=== PATIENT | male | born 1955 | race Caucasian/White ===

== ENCOUNTER → 2016-06-12 | Outpatient (CLI) | payer BC ==
--- NOTE | 2016-06-12 12:18 | CT ---
EXAMINATION TYPE: CT ChestAbdPelvis w con DATE OF EXAM: 06/12/2016 9:42 AM COMPARISON: CT CAP March 04, 2016 and older studies HISTORY: f/u Lung CA progress study. CT DLP: 447.5 mGycm. Automated Exposure Control for Dose Reduction was Utilized. CONTRAST: CT scan of the thorax, abdomen and pelvis is performed with oral and with IV Contrast, patient inject ed with 100 mL of Omnipaque 300. FINDINGS: LUNGS: There is persistent calcified pleural plaques posterior right midlung on axial image 36 and thomas perior to this. Near level of the major fissure there is persistent irregular scarlike opacity with m ore suspicious with stable nodularity measuring 9 x 6 mm on axial image 25, this is not significantly changed from March 2015 study. However just superior to this there is new suspicious 8 x 7 mm nod ule noted on axial image 24 and coronal image 53. There may be new additional 4 x 3 mm nodule inferio r and medial to this on axial image 27. Left lung remains clear. There is no pleural effusion or pneu mothorax seen bilaterally. The tracheobronchial tree is patent. MEDIASTINUM: There are persistent slightly prominent borderline enlarged right hilar lymph nodes. The re is no new greater than 1 cm thoracic lymph nodes clearly seen. No cardiomegaly or pericardial eff usion is seen. OTHER: There are scattered prominent but subcentimeter lymph nodes throughout the bilateral axillae r edemonstrated. LIVER/GB: No significant abnormality is appreciated. PANCREAS: No significant abnormality is seen. SPLEEN: No significant abnormality is seen. ADRENALS: No significant abnormality is seen. KIDNEYS: There is symmetric cortical medullary uptake and excretion from both kidneys without evidenc e of hydronephrosis bilaterally. There is however moderate to severe mid to distal hydroureter especi ally prominent near the bladder orifice. No obstructing mass or calculus is clearly seen. Possible re flux? This is noted unchanged from prior exam. BOWEL: No significant abnormality is seen. GENITAL ORGANS: Prostate gland remains enlarged in size bulging on bladder base, clinical correlation with BPH is advised. LYMPH NODES: No greater than 1cm abdominal or pelvic lymph nodes are appreciated. OSSEOUS STRUCTURES: Moderate to severe joint space loss and spurring of both hip joints is present. OTHER: No significant additional abnormality is seen. IMPRESSION: New suspicious 8 x 7 mm nodule right upper lung near level of scar is noted. Recurrent n eoplasm needs to BE considered. Consider PET/CT follow-up.
== END | disposition home or self-care (01) ==
LOC: RADCTMAIN 08:25
PROVIDERS: ATTEND Internal Medicine Hematology & Oncology
DX: C34.90 Malignant neoplasm of unspecified part of unspecified bronchus or lung (principal)
CPT/HCPCS: 71260; 74177; Q9967

== ENCOUNTER → 2016-10-22 | Outpatient (CLI) | payer BC ==
[2016-10-22 08:31] LABS: Blood Urea Nitrogen 16 mg/dL (9-20); Non-African American GFR(MDRD) >60 (>60 ml/min/1.73 sqM)
--- NOTE | 2016-10-22 12:39 | CT ---
EXAMINATION TYPE: CT ChestAbdPelvis w con DATE OF EXAM: 10/22/2016 COMPARISON: August 16, 2016 CT HISTORY: Follow up scan of lung cancer CT DLP: 535.5 mGycm Automated exposure control for dose reduction was used. CONTRAST: CT scan of the chest, abdomen and pelvis is performed with Oral Contrast and with IV Contrast, patien t injected with 100 mL of Omnipaque 300. FINDINGS: LUNGS: Previously measuring 1.7 x 1.2 cm, the right upper lobe interlobar fissure-based mass now keri ures 3.3 x 2.8 cm on axial image 23 - consistent with neoplastic progression. Calcified pleural plaqu es posteriorly in the right upper to mid lung are redemonstrated. The previously seen 6 x 5 mm nodule inferior and medial to the main lesion appears slightly increased in size, measuring 7 x 6 mm. Also unchanged is the focal scarring laterally in the right lung base. No new parenchymal nodule or mass i s clearly seen. MEDIASTINUM: There remains suspicious right hilar lymph nodes felt to be stable, for lymph node measu res 10 x 9 mm. No new greater than 1 cm lymph nodes are clearly seen. No cardiomegaly or pericardial effusion is seen. OTHER: Prominent multiple but subcentimeter bilateral axillary lymph nodes are stable. LIVER/GB: No significant abnormality is appreciated. PANCREAS: No significant abnormality is seen. SPLEEN: No significant abnormality is seen. ADRENALS: No significant abnormality is seen. KIDNEYS: There is simple appearing 2.0 cm cyst laterally upper pole level left kidney that is stable. There is symmetric cortical medullary uptake and excretion from both kidneys without evidence of hyd ronephrosis bilaterally. There is redemonstration of the moderate-severe mid-distal hydroureter more focal dilatation or possible diverticulum in the left pelvis. BOWEL: No significant abnormality is seen. GENITAL ORGANS: Prostate gland is again seen to be heterogeneous and enlarged in size bulging on blad abhijit base, suspect underlying BPH. LYMPH NODES: No greater than 1cm abdominal or pelvic lymph nodes are appreciated. OSSEOUS STRUCTURES: No focal lesions. Markedly advanced [id number] bilateral hip osteoarthritis maine nges redemonstrated. IMPRESSION: CONTINUED PROGRESSION IN SIZE IN RIGHT UPPER LOBE MASS, NODULE, CONSISTENT WITH NEOPLASTIC PROGRESSIO N.
== END | disposition home or self-care (01) ==
LOC: RADCTMAIN 08:00
PROVIDERS: ATTEND Internal Medicine Hematology & Oncology
DX: C34.11 Malignant neoplasm of upper lobe, right bronchus or lung (principal)
CPT/HCPCS: 82565; 84520; 71260; 74177; 36415; Q9967

== ENCOUNTER → 2016-11-06 | Day surgery (SDC) | payer BC ==
[~2016-11-06] MED LIST: MIDAZOLAM 2 MG/2 ML VIAL IVP ONE; SODIUM CHLORIDE 0.9% 500 ML IV ONE; fentaNYL (PF) 50 MCG/ML 2 ML AMP IV ONE
[2016-11-06 09:35] LABS: INR 1.1 (<1.1); Prothrombin Time 10.7 sec (9.0-12.0)
[2016-11-06] MEDS: MIDAZOLAM 2 MG/2 ML VIAL IVP ONE ×2 (10:02→10:11)
[2016-11-06] MEDS: LIDOCAINE 2% INJ 20 MG/ML SQ ONE ×2 (10:17→10:37)
--- NOTE | 2016-11-06 11:25 | XR ---
EXAMINATION TYPE: XR chest 1V portable DATE OF EXAM: 11/06/2016 HISTORY: attempted lung biopsy (RT). REFERENCE: Previous study dated 10/14/2014. FINDINGS: There has been interval development of a 3.6 cm right upper lobe pulmonary mass. The lungs are overinflated. Heart size is normal. I do not see evidence of pneumothorax. IMPRESSION: NO EVIDENCE OF PNEUMOTHORAX AT THIS TIME.
[2016-11-06 12:48] VITALS: RESP 16
--- NOTE | 2016-11-06 13:40 | XR ---
EXAMINATION TYPE: XR chest 1V portable DATE OF EXAM: 11/06/2016 HISTORY: post lung biopsy. REFERENCE: Previous study of earlier today.. FINDINGS: Right upper lobe pulmonary mass remains unchanged in appearance. I do not see evidence of p neumothorax. The lungs are overinflated. The heart is not enlarged. IMPRESSION: I DO NOT SEE A POST BIOPSY COMPLICATION.
--- NOTE | 2016-11-06 14:53 | CT ---
EXAMINATION TYPE: CT guided FNA DATE OF EXAM: 11/06/2016 HISTORY: Lung mass COMPARISON: CT chest 10/22/2016 Failed attempts to perform biopsy in fluoroscopy room resulted in an attempt in CT. Maximal barrier technique was utilized. The skin overlying a suitable path to the lesion was localiz ed using CT and the overlying skin was prepped and draped. Lidocaine used for local anesthesia. A s kin pinky made with a scalpel. Using CT guidance, access was gained to the lesion with a 22-gauge nee dle. 20-gauge guide. Aspirated specimen submitted to cytology. 3 passes were performed in all. Fol lowing the procedure no immediate complications. The patient is discharged in stable condition. He mostasis achieved. IMPRESSION: SUCCESSFUL CT GUIDED BIOPSY. PATHOLOGY PENDING. THIS PROCEDURE WAS PERFORMED BY THE UNDERSIGNED.
--- NOTE | 2016-11-06 15:48 | XR ---
EXAMINATION TYPE: XR chest 1V portable DATE OF EXAM: 11/06/2016 HISTORY: post lung biopsy. REFERENCE: Previous study of earlier today.. FINDINGS: Visualized right upper lobe mass is unchanged. I do not see evidence of pneumothorax. The l ungs are overinflated. The heart is not enlarged. There is blunting of the right CP angle. I could no t exclude a small effusion. IMPRESSION: I DO NOT SEE A POSTBIOPSY PNEUMOTHORAX.
[2016-11-06 16:52] VITALS: TEMP 98.2
[2016-11-06 17:02] VITALS: BP 110/65; PULSE 48
--- NOTE | 2016-11-07 14:13 | IR ---
Fluoroscopically guided needle placement, lung biopsy EXAMINATION TYPE: IR fluoro guided needle place DATE OF EXAM: 11/06/2016 COMPARISON: CT 10/22/2016 HISTORY: Right upper lobe lung mass. FINDINGS: Maximal barrier technique was utilized. The skin overlying a suitable path to the patient's mass was localized under fluoroscopy. The overlying skin was prepped and draped. Lidocaine used for local a nesthesia and a skin pinky made with a scalpel. 22-gauge needle was advanced into the lung mass. Asp irated specimen submitted to cytology. An additional passes were made using similar technique. Foll owing the procedure no immediate complication. The patient remained in stable condition and was disc harged to observation. Due to inadequate specimen, repeat biopsy will be performed under CT. 0.6 minutes fluoroscopy time. 548 intraoperative C-arm images document the procedure IMPRESSION: Status post fluoroscopic guided fine-needle aspiration of lung mass. Pathology is inadeq uate. Biopsy to be performed with CT on same date. This procedure performed by the undersigned.
== END ==
LOC: RADPROMAIN 08:33
PROVIDERS: ATTEND Internal Medicine Hematology & Oncology
DX: C34.91 Malignant neoplasm of unspecified part of right bronchus or lung (principal)
CPT/HCPCS: 32405; 88305; 88173; 85049; 85610; 88342; 88341; 71010; 77012; 10022; J2001; J2250; J3010

== ENCOUNTER → 2017-02-12 | Outpatient (CLI) | payer BC, MEDICARE ==
[2017-02-12 11:54] LABS: Blood Urea Nitrogen 19 mg/dL (9-20); Non-African American GFR(MDRD) >60 (>60 ml/min/1.73 sqM)
--- NOTE | 2017-02-12 13:07 | CT ---
EXAMINATION TYPE: CT ChestAbdPelvis w con DATE OF EXAM: 02/12/2017 COMPARISON: 10/22/2016 and 08/16/2016 HISTORY: 61-year-old male follow-up lung CA TECHNIQUE: Contiguous axial scanning of the chest, abdomen, and pelvis performed with IV Contrast, pa tient injected with 100 mL of Omnipaque 300. Delayed images through the kidneys were obtained. Carrera l/sagittal reconstructions performed. CT DLP: 466.4 mGycm Automated exposure control for dose reduction was used. FINDINGS: CHEST: The heart is normal size without pericardial effusion. Aorta is normal caliber with bovine configuration to the aortic arch. Numerous nonenlarged axillary lymph nodes are present in both sides measuring up to 8 mm, increased f rom 10/22/2016 where this lymph node measured 6 mm. This can be followed on a clinical basis. Tiny lat eral left breast nodule measuring 5 mm is unchanged, likely intramammary lymph node. No thoracic lymp hadenopathy by CT size criteria. Pleural based calcifications along the posterior right mid lung are unchanged. Strandy opacity along the superior right major fissure suggesting scar. The right upper lobe mass pre viously seen here measuring 3.2 cm shows interval decrease in size now with a poorly defined spiculat ed density measuring 1.9 cm. The previous 2 adjacent satellite nodules are no longer visualized. Foca l 8 mm density at the peripheral right base is unchanged, likely pleural-parenchymal scarring. ABDOMEN: No focal liver lesion. Mild prominence to the biliary system is unchanged. Gallbladder, adrenal glands, right kidney, spleen, and pancreas appear within normal limits. 2.0 cm c yst lateral upper pole left kidney. Left-sided megaureter unchanged. No dilated small bowel, free fluid, or free air. No mesenteric or retroperitoneal lymphadenopathy richard ntified. Moderate stool burden. Mild circumferential wall thickening in the lower descending colon likely seco ndary to nondistention. Pelvis: Bladder is urine distended. Prostate gland is enlarged at 5.8 cm wide. More pronounced dilatation inv olves the distal left ureter at 3.4 cm, unchanged. No abnormal fluid collection in the pelvis. Bones: End-stage degenerative change of the hips. Degenerative changes at the SI joints and in the mid to lo wer lumbar spine. No osseous destructive process seen. IMPRESSION: 1. INTERVAL TREATMENT RESPONSE. THE PREVIOUS 3.2 CM RIGHT UPPER LOBE MASS NOW SHOWS A 1.9 CM POORLY D EFINED SPICULATED DENSITY. ALSO, THE 2 ADJACENT SATELLITE NODULES HAVE RESOLVED. RECOMMEND FOLLOW-UP TO REASSESS EVOLVING TREATMENT CHANGES. 2. PROSTATOMEGALY (5.8 CM WIDE). PROMINENT DISTENTION OF THE URINARY BLADDER. CORRELATE TO ENSURE LYNETTE T THIS IS VOLUNTARY RETENTION RATHER THAN BLADDER OUTLET OBSTRUCTION AND BPH. UNCHANGED LEFT MEGAURET ER.
== END | disposition home or self-care (01) ==
LOC: RADCTMAIN 11:10
PROVIDERS: ATTEND Internal Medicine Hematology & Oncology
DX: C34.90 Malignant neoplasm of unspecified part of unspecified bronchus or lung (principal); N40.0 Benign prostatic hyperplasia without lower urinary tract symptoms
CPT/HCPCS: 82565; 84520; 71260; 74177; 36415; Q9967

== ENCOUNTER → 2017-05-19 | Outpatient (CLI) | payer MEDICARE ==
[2017-05-19 10:57] LABS: Blood Urea Nitrogen 22 mg/dL (9-20)
--- NOTE | 2017-05-19 11:46 | CT ---
EXAMINATION TYPE: CT ChestAbdPelvis w con DATE OF EXAM: 05/19/2017 COMPARISON: NONE HISTORY: Patient has no complaints at time of study. Follow up study for known lung CA. CT DLP: 518.1 mGycm Automated exposure control for dose reduction was used. CONTRAST: CT scan of the chest, abdomen and pelvis is performed with Oral Contrast and with IV Contrast, patien t injected with 100 mL of Omnipaque 300. FINDINGS: CHEST: The heart is normal size without pericardial effusion. Aorta is normal caliber with bovine con figuration to the aortic arch. Numerous nonenlarged axillary lymph nodes are present in both sides me asuring up to 8 mm, stable from previous exam. This can be followed on a clinical basis. Tiny lateral left breast nodule measuring 5 mm is unchanged, likely intramammary lymph node. No thoracic lymphadenopathy by CT size criteria. Pleural based calcifications along the posterior rig ht mid lung are unchanged. Strandy opacity along the superior right major fissure suggesting scar. The right upper lobe mass with a poorly defined spiculated density measuring 1.9 cm. Is stable. Focal 8 mm density at the peripheral right base is unchanged, likely pleural-parenchymal scarring. ABDOMEN: No focal liver lesion. Mild prominence to the biliary system is unchanged. Gallbladder, adrenal glands, right kidney, spleen, and pancreas appear within normal limits. Small ac cessory spleen noted. 2.0 cm cyst lateral upper pole left kidney. Left-sided megaureter unchanged. No dilated small bowel, free fluid, or free air. No mesenteric or retroperitoneal lymphadenopathy richard ntified. Moderate stool burden. Mild circumferential wall thickening in the lower descending colon li ramin secondary to nondistention. Pelvis: Bladder is urine distended. Prostate gland is enlarged at 5.8 cm wide. More pronounced dilata tion involves the distal left ureter at 3.4 cm, unchanged. No abnormal fluid collection in the pelvis . Bones: End-stage degenerative change of the hips. Degenerative changes at the SI joints and in the mi d to lower lumbar spine. No osseous destructive process seen. Severe arthropathy of the hips IMPRESSION: 1. INTERVAL TREATMENT RESPONSE. THE PREVIOUS 3.2 CM RIGHT UPPER LOBE MASS NOW SHOWS A 1.9 CM POORLY D EFINED SPICULATED DENSITY. ALSO, THE 2 ADJACENT SATELLITE NODULES HAVE RESOLVED. RECOMMEND FOLLOW-UP TO REASSESS EVOLVING TREATMENT CHANGES. 2. PROSTATOMEGALY (5.8 CM WIDE). UNCHANGED LEFT MEGAURETER.
== END | disposition home or self-care (01) ==
LOC: RADCTMAIN 10:25
PROVIDERS: ATTEND Internal Medicine Hematology & Oncology
DX: C34.90 Malignant neoplasm of unspecified part of unspecified bronchus or lung (principal); N40.0 Benign prostatic hyperplasia without lower urinary tract symptoms
CPT/HCPCS: 82565; 84520; 71260; 74177; 36415; Q9967

== ENCOUNTER → 2017-08-12 | Outpatient (CLI) | payer MEDICARE ==
[2017-08-12 12:00] LABS: Blood Urea Nitrogen 18 mg/dL (9-20)
--- NOTE | 2017-08-12 14:43 | CT ---
EXAMINATION TYPE: CT ChestAbdPelvis w con DATE OF EXAM: 08/12/2017 INDICATION: Follow up to lung CA COMPARISON: 05/19/2017 CT DLP: 507.4 mGycm CONTRAST: Performed with Oral Contrast and with IV Contrast, patient injected with 100 mL of Isovue 300. TECHNIQUE: Axial images at 5 mm thick sections. Reconstructed images in the coronal plane. Delayed images through the kidneys. FINDINGS: CT CHEST: Portion of the thyroid visualized is normal. No suspicious lung nodules or focal infiltrates are present. Pleural calcifications in the posterior mid right lung. On lung windows some residual spiculated densities in the periphery of the right mid lung. Series 4 image 25. This measures 1.0 x 0.7 cm on mediastinal windows which is minimally smaller than the comparison. Previous measurement similar images 1.2 x 0.6 cm. A 1.2 cm right hilar lymph no de is present. Additional mediastinal adenopathy would include a 1.1 cm subcarinal lymph node which a ppears to be new. The right hilar lymph node was present previously and similar in size. The ascending aorta diameter at the level of the main pulmonary artery is 3.0 cm. The main pulmonary artery diameter at the bifurcation is 2.[address] ABDOMEN: Liver: Normal Spleen: Normal Pancreas: Normal Adrenal glands: The adrenal glands are normal. Gallbladder: Normal Kidneys: No masses are evident. No hydronephrosis is present. No cysts are present. Delayed images were obtained through the kidneys, which remain unremarkable. Aorta: Vascular calcification is within the aorta. Inferior vena cava: Normal. CT PELVIS: Loops of bowel within the abdomen and pelvis are normal. There are loops of bowel which are incom pletely distended or lack oral contrast limiting their evaluation. Appendix: Normal as visualized. Urinary bladder: Appears to be a large left urinary bladder diverticulum extending into the posterior left hemipelvis. This was present previously and appears stable. Differential would include the prev iously described megaureter. Genitourinary structures: Prostate is prominent. Osseous structures: No suspicious lytic or sclerotic lesions. IMPRESSIONS: 1. Slightly diminished size of a right midlung mass. Mediastinal adenopathy may be increasing in prom inence including a new subcarinal lymph node. 2. 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
== END | disposition home or self-care (01) ==
LOC: RADCTMAIN 11:21
PROVIDERS: ATTEND Internal Medicine Hematology & Oncology
DX: C34.90 Malignant neoplasm of unspecified part of unspecified bronchus or lung (principal); R91.8 Other nonspecific abnormal finding of lung field; R59.0 Localized enlarged lymph nodes
CPT/HCPCS: 82565; 84520; 71260; 74177; 36415; Q9967

== ENCOUNTER → 2017-11-11 | Outpatient (CLI) | payer MEDICARE ==
--- NOTE | 2017-11-11 14:02 | CT ---
EXAMINATION TYPE: CT ChestAbdPelvis w con DATE OF EXAM: 11/11/2017 COMPARISON: 08/12/2017 HISTORY: Lung cancer CT DLP: 1225 mGycm Automated exposure control for dose reduction was used. CONTRAST: CT scan of the chest, abdomen and pelvis is performed with Oral Contrast and with IV Contrast, patien t injected with 100 ml mL of Isovue 300. FINDINGS: LUNGS: The lungs are grossly clear, there is no concerning parenchymal mass or nodule identified. T here is no pleural effusion or pneumothorax seen. The tracheobronchial tree is patent. Pleural calci fications again noted. There is noted 1.2 cm spiculated density in the right midlung stable. Addition al area of vague nodularity lateral margin right lower lobe near the diaphragm measuring 7 mm is stab le. MEDIASTINUM: There is stable 1.2 cm right hilar lymph node 1.1 similar subcarinal lymph node.. OTHER: No additional significant abnormality is seen. LIVER/GB: No significant abnormality is appreciated. PANCREAS: No significant abnormality is seen. SPLEEN: No significant abnormality is seen. ADRENALS: No significant abnormality is seen. KIDNEYS: Simple cyst involving the left kidney measuring 1.5 cm.. BOWEL: No significant abnormality is seen. LYMPH NODES: No greater than 1 cm abdominal or pelvic lymph nodes are appreciated. OSSEOUS STRUCTURES: Hypertrophic and degenerative change of the spine. There is a large area of abnor mal attenuation involving the sacrum suspicious for metastases bone destruction measuring 4.1 cm arth ropathy of the hips noted. Degenerative change of the spine multilevel facet arthropathy noted. OTHER: Atherosclerotic change of the aorta. Left bladder urinary diverticulum noted. Prostate gland p rominent. Persistent dilated cystic structure in the left pelvis may represent appears to be contiguo us with the ureter and therefore likely represents a dilated ureter. IMPRESSION: 1. Spiculated mass and area of nodularity in the right lung are stable. 2. Hilar and mediastinal lymph node stable. 3. Pleural calcifications correlate for asbestosis related disease. 4. There now is a 4.1 cm destructive mass involving the sacrum suggestive of metastasis. 5. Stable cystic changes in the left hemipelvis which appears continuous with the ureter and appears to representing markedly dilated left ureter extending to level the left UVJ. No calcification.
== END ==
LOC: RADCTMAIN 11:54
PROVIDERS: ATTEND Internal Medicine Hematology & Oncology
DX: C34.91 Malignant neoplasm of unspecified part of right bronchus or lung (principal); J94.8 Other specified pleural conditions; M89.8X8 Other specified disorders of bone, other site; N28.1 Cyst of kidney, acquired; N28.82 Megaloureter
CPT/HCPCS: 82565; 84520; 71260; 74177; 36415; Q9967

== ENCOUNTER → 2017-11-18 | Outpatient (CLI) | payer MEDICARE ==
--- NOTE | 2017-11-18 13:18 | XR ---
EXAMINATION TYPE: XR sacrum coccyx DATE OF EXAM: 11/18/2017 COMPARISON: CT CAP 1 week ago and older CT's. HISTORY: Stage [address] Ab[address] TECHNIQUE: Two views of sacrum and coccyx are obtained. FINDINGS: There is suspicious lucent lesion seen best on lateral view involving S1 and S2 vertebra wi th ill-definition of posterior margin, this is less well-seen on frontal view appears to correspond t o lucent intramedullary lesion on CT which is new from older CTs. Metastatic disease would be favored given patient's history of stage IV lung cancer. Other etiologies are not excluded. Sacroiliac joint s are maintained. IMPRESSION: As above
== END | disposition home or self-care (01) ==
LOC: RADXRMAIN 11:44
PROVIDERS: ATTEND Internal Medicine Hematology & Oncology
DX: C34.90 Malignant neoplasm of unspecified part of unspecified bronchus or lung (principal); I11.0 Hypertensive heart disease with heart failure; I50.9 Heart failure, unspecified
CPT/HCPCS: 72220

== ENCOUNTER → 2017-11-24 | Outpatient (CLI) | payer MEDICARE ==
--- NOTE | 2017-11-24 13:36 | NM ---
EXAMINATION TYPE: NM bone scan whole body DATE OF EXAM: 11/24/2017 COMPARISON: CT of 11/11/2017 HISTORY: 61 year-old male lung cancer, suspected metastases. Technique: Delayed whole-body scanning was performed following the injection of 23 mCi Tc 99m MDP. I mages acquired 3 hours post injection. FINDINGS: A teardrop-shaped intense radiotracer activity in the left side of the pelvis corresponds to a patulo us ureter seen on patient's CT scan. There is focal abnormal tracer activity involving the first or first and second sacral segments. Scattered degenerative tracer activity at the shoulders, sternoclavicular joints, and left elbow. No other suspicious tracer activity to suggest osseous metastatic disease. IMPRESSION: 1. Moderate abnormal activity involving the destructive S1, S1/S2 lesion. No other scintigraphic evid ence of osseous metastatic disease. 2. Focal tracer activity in the left side of the pelvis corresponds to a patulous left ureter as seen on recent CT.
== END | disposition home or self-care (01) ==
LOC: RADNMMAIN 09:43
PROVIDERS: ATTEND Internal Medicine Hematology & Oncology
DX: C34.90 Malignant neoplasm of unspecified part of unspecified bronchus or lung (principal)
CPT/HCPCS: 78306; A9503

== ENCOUNTER → 2018-01-20 | Outpatient (CLI) | payer MEDICARE ==
[2018-01-20 11:09] LABS: Blood Urea Nitrogen 16 mg/dL (9-20)
--- NOTE | 2018-01-20 13:07 | CT ---
EXAMINATION TYPE: CT ChestAbdPelvis w con DATE OF EXAM: 01/20/2018 COMPARISON: CT chest abdomen and pelvis November 11, 2017 and older studies. PET/CT August 13, 2014 HISTORY: lung CA follow up. Lung cancer diagnosed 3.5 years ago currently on oral chemotherapy per p atient. CT DLP: 443.3 mGycm. Automated Exposure Control for Dose Reduction was Utilized. CONTRAST: CT scan of the thorax, abdomen and pelvis is performed with oral and with IV Contrast, patient inject ed with 100 mL of Isovue 300. FINDINGS: LUNGS: Some calcified pleural plaques throughout the right lung remain present. There is stable scarl regan opacity posteriorly in the right upper lobe measuring roughly 1.7 x 1.1 cm axial image 24. Additi onal vague 6 mm lateral nodularity right lung base axial image 56 is unchanged from prior studies. Th ere is stable minimal linear scarring or atelectasis in the right lung base just above diaphragm. No new suspicious nodules or masses are present. No pleural effusion or pneumothorax is identified bilat erally. MEDIASTINUM: There are no new greater than 1 cm hilar or mediastinal lymph nodes. There are stable pr ominent but subcentimeter right hilar lymph node axial image 29. No cardiomegaly or pericardial effu paris is seen. OTHER: There are stable prominent but subcentimeter bilateral axillary lymph nodes. LIVER/GB: No significant abnormality is appreciated. PANCREAS: No significant abnormality is seen. SPLEEN: No significant abnormality is seen. ADRENALS: No significant abnormality is seen. KIDNEYS: There is stable 1.5 cm simple appearing cyst laterally upper pole level left kidney. In the left pelvis there is thin-walled fluid collection suspected prominent bladder diverticulum or distal ureter dilation axial image 116 redemonstrated. BOWEL: Oral contrast does not reach colonic level making evaluation slightly suboptimal as patient al so has very little intra-abdominal fat. There is no suspicious small or large bowel dilatation seen. GENITAL ORGANS: Prostate gland is upper limits of normal in size bulging on bladder base. LYMPH NODES: No greater than 1cm abdominal or pelvic lymph nodes are appreciated. OSSEOUS STRUCTURES: Spine is straightened on sagittal images there is moderate to advanced degenerati ve change in both hips, left greater than right with spurring and joint space loss as well as subchon dral cystic change. Expansile hyperdense lesion in the upper sacrum extending to left of midline axial image 103 continue s to appear more prominent from most recent prior study measuring approximately 5.0 x 4.7 cm on axial image 104 OTHER: No significant additional abnormality is seen. IMPRESSION: Worsening expansile sacral mass worrisome for neoplasm metastatic focus versus new osseou s primary. Other findings stable.
== END | disposition home or self-care (01) ==
LOC: RADCTMAIN 10:20
PROVIDERS: ATTEND Internal Medicine Hematology & Oncology
DX: Z03.89 Encounter for observation for other suspected diseases and conditions ruled out (principal); C34.90 Malignant neoplasm of unspecified part of unspecified bronchus or lung
CPT/HCPCS: 82565; 84520; 71260; 74177; 36415; Q9967

== ENCOUNTER → 2018-04-20 | Outpatient (CLI) | payer MEDICARE ==
[2018-04-20 12:00] LABS: Blood Urea Nitrogen 20 mg/dL (9-20)
--- NOTE | 2018-04-20 14:25 | CT ---
EXAMINATION TYPE: CT ChestAbdPelvis w con DATE OF EXAM: 04/20/2018 COMPARISON: Prior exam 01/20/2018 CT Chest Abdomen Pelvis HISTORY: Follow-up lung cancer. CT DLP: 591.4 mGycm Automated exposure control for dose reduction was used. CONTRAST: CT scan of the chest, abdomen and pelvis is performed with Oral Contrast and with IV Contrast, patien t injected with 100 mL of Isovue M300. FINDINGS: Posterior pleural calcification shows a stable appearance. LUNGS: The probable scarring in the right upper lobe shows a stable appearance. MEDIASTINUM: There are no greater than 1 cm hilar or mediastinal lymph nodes. No pericardial effusi on is seen. AORTA: No significant abnormality is seen. OTHER: No additional significant abnormality is seen. LIVER/GB: No significant abnormality is appreciated. PANCREAS: No significant abnormality is seen. SPLEEN: No significant abnormality is seen. ADRENALS: No significant abnormality is seen. KIDNEYS: Left renal cystic focus is stable. REPRODUCTIVE ORGANS: Prostate shows a similar enlarged appearance. BOWEL: No significant abnormality is seen. FREE AIR: No Free Air visible. ASCITES: None seen. RETROPERITONEAL ADENOPATHY: No retroperitoneal adenopathy is seen. LYMPH NODES: No greater than 1 cm abdominal or pelvic lymph nodes are appreciated. URINARY BLADDER: Urinary bladder shows thickened wall possibly due to chronic outlet obstruction. Cys tic focus adjacent to the urinary bladder in the left hemipelvis shows a similar appearance, findings compatible with a patulous distal left ureter PELVIC ADENOPATHY: None visualized. OSSEOUS STRUCTURES: Lytic appearing lesion within the sacrum shows a similar appearance. There is so me improvement in the lucency seen on prior exam, the lesion appears somewhat more sclerotic, no evid ent cortical destruction. IMPRESSION: Findings are not significant changed compared to prior exam. Sacral lesion may show some interval healing or posttreatment change.
== END ==
LOC: RADCTMAIN 11:17
PROVIDERS: ATTEND Internal Medicine Hematology & Oncology
DX: C34.90 Malignant neoplasm of unspecified part of unspecified bronchus or lung (principal)
CPT/HCPCS: 82565; 84520; 71260; 74177; 36415; Q9967

== ENCOUNTER → 2018-07-22 | Outpatient (CLI) | payer MEDICARE ==
[2018-07-22 07:58] LABS: Blood Urea Nitrogen 15 mg/dL (9-20)
--- NOTE | 2018-07-22 10:43 | CT ---
EXAMINATION TYPE: CT ChestAbdPelvis w con DATE OF EXAM: 07/22/2018 COMPARISON: CT chest abdomen pelvis April 20, 2018 and multiple older CTs. PET CT August 13, 2014. HISTORY: Carcinoma of lung diagnosed 2014. Completed radiation treatment in February 2018. CT DLP: 621.50 mGycm. Automated Exposure Control for Dose Reduction was Utilized. CONTRAST: CT scan of the thorax, abdomen and pelvis is performed with IV Contrast, patient injected with 100 ml mL of Isovue 300. FINDINGS: LUNGS: Posterior pleural-based calcification right midlung beginning near axial image 24 more promine nt near image 37 extending inferiorly and laterally to image 45 shows no significant interval change from most recent prior. There is stable lateral right basilar 8mm nodular opacity axial image 54 unch anged back through October 2016 CT presumed benign. The scarlike opacity lateral right upper lobe measur es roughly 1.2 x 1.0 cm axial image 22 is not significantly changed from most recent CT. Significant improvement from October 2016 CT is noted. Suspect stable treated neoplasm. MEDIASTINUM: There is stable prominent anterior right hilar 10 x 9 mm lymph node axial image 31 uncha nged back to October 2016 CT There are no new greater than 1 cm hilar or mediastinal lymph nodes. No p ericardial effusion is seen. OTHER: There are stable prominent but subcentimeter bilateral axillary lymph nodes. LIVER/GB: No significant abnormality is appreciated. PANCREAS: No significant abnormality is seen. SPLEEN: No significant abnormality is seen. ADRENALS: No significant abnormality is seen. KIDNEYS: Bladder wall remains mildly distended less prominent than prior. This is presumed product of outlet obstruction related to BPH, correlate clinically. There is persistent stable thin-walled cyst ic lesion in the posterior left pelvis measuring 5.8 x 2.7 cm presumed benign. Differential includes bladder diverticulum though no definitive connection to bladder is identified. Lymphocele is also in differential. PET CT shows stable dilatation of the distal ureter without hydronephrosis accounting f or this finding. BOWEL: Low-lying cecum into right pelvis is noted. GENITAL ORGANS: Slightly enlarged prostate gland bulging on bladder base is redemonstrated consistent with underlying BPH. LYMPH NODES: No greater than 1cm abdominal or pelvic lymph nodes are appreciated. OSSEOUS STRUCTURES: On current study there is more prominent sclerosis centered in the upper sacrum a t area of lucency on prior study. There is moderate to advanced degenerative change in both hip join ts with joint space narrowing and spurring. No new lucent lesions are identified. OTHER: No significant additional abnormality is seen. IMPRESSION: 1. Stable appearance of right upper lobe scarlike opacity presumed treated neoplasm. No new suspicio us masses or adenopathy identified to suggest active neoplastic recurrence. 2. Interval sclerosis of the upper sacrum at area of prior lucency without additional suspicious luce nt lesions is felt to reflect healing sacral insufficiency fracture with osseous metastatic disease f elt less likely.
== END | disposition home or self-care (01) ==
LOC: RADCTMAIN 06:52
PROVIDERS: ATTEND Internal Medicine Hematology & Oncology
DX: Z08 Encounter for follow-up examination after completed treatment for malignant neoplasm (principal); R91.8 Other nonspecific abnormal finding of lung field; M89.8X8 Other specified disorders of bone, other site; Z85.118 Personal history of other malignant neoplasm of bronchus and lung
CPT/HCPCS: 82565; 84520; 71260; 74177; 36415; Q9967

== ENCOUNTER 2018-10-12 09:58 | Day surgery (SDC) | payer MEDICARE ==
[2018-10-09 08:11] VITALS: BMI 20.7
[~2018-10-12 09:58] MED LIST changes: +LACTATED RINGERS 1,000 ML IV SCH; +LIDOCAINE 1% 20 ML VIAL (10MG/ML) FOR IV START INTRADERMA PRN; -MIDAZOLAM 2 MG/2 ML VIAL IVP ONE; -SODIUM CHLORIDE 0.9% 500 ML IV ONE; -fentaNYL (PF) 50 MCG/ML 2 ML AMP IV ONE
[2018-10-12 10:21] VITALS: RESP 16; TEMP 98.2
[2018-10-12] MEDS ORDERED: LIDOCAINE 1% INJ 10MG/ML (20 ML MDV) ONE (11:34)
[2018-10-12] MEDS ORDERED: PROPOFOL 10 MG/ML 20 ML VIAL IV ONE (11:34)
--- NOTE | 2018-10-12 12:05 | P.PCN ---
Date of Procedure: 10/12/18 Procedure(s) Performed: Procedure: Total colonoscopy. Preoperative diagnosis: Screening for neoplasia. Postoperative diagnosis: Exam within normal limits. Preparation: HalfLytely prep. Sedation: Was provided by anesthesia. Brief clinical history: The patient is a 62-year-old male who is scheduled for t his evaluation for screening for neoplasia age being his risk factor. There is no family history of colon cancer. The patient has no abdominal complaints, bleeding or anemia. He had a prior colonoscopy around 10 years ago. Procedure: With the patient on his left lateral decubitus position and after informed consent and adequate sedation, the perianal area was inspected and it did not show any fissures or fistulas. There were no masses felt on digital rectal examination. The Olympus CFH 190 L videocolonoscope was then inserted in the rectum in the usual fashion and advanced to the cecum. The mucosa appeared healthy. No polyps or tumors were seen or any obvious diverticular disease or other pathology. I retroflexed the endoscope in the rectum before the endoscope was withdrawn. The patient tolerated the procedure well. Plan: In the absence of family history of colon cancer of finding of polyps today, I recommended repeat exam in 10 years.
[2018-10-12 12:20] VITALS: BP 116/60; PULSE 60
== END 2018-10-12 12:52 | disposition home or self-care (01) ==
LOC: ORWHC2ENDO 09:58
DX: Z12.11 Encounter for screening for malignant neoplasm of colon (principal); J44.9 Chronic obstructive pulmonary disease, unspecified; M19.90 Unspecified osteoarthritis, unspecified site; I50.9 Heart failure, unspecified; Z85.828 Personal history of other malignant neoplasm of skin; C34.90 Malignant neoplasm of unspecified part of unspecified bronchus or lung; N40.0 Benign prostatic hyperplasia without lower urinary tract symptoms; Z79.899 Other long term (current) drug therapy
CPT/HCPCS: J2001; J2704; G0121

== ENCOUNTER → 2018-10-22 | Outpatient (CLI) | payer MEDICARE ==
[2018-10-22 13:35] LABS: African American GFR (CKD) >90 (>60 ml/min/1.73 sqM); Blood Urea Nitrogen 19 mg/dL (9-20)
--- NOTE | 2018-10-22 14:36 | CT ---
EXAMINATION TYPE: CT ChestAbdPelvis w con DATE OF EXAM: 10/22/2018 COMPARISON: CT chest abdomen and pelvis July 22, 2018 and older CTs HISTORY: lung CA CT DLP: 763.4 mGycm. Automated Exposure Control for Dose Reduction was Utilized. CONTRAST: CT scan of the thorax, abdomen and pelvis is performed with IV Contrast, patient injected with 100 mL of Isovue 300. FINDINGS: LUNGS: Stable scarlike opacity right upper lobe near axial images 23 and 24 not significantly changed back through February 12, 2017 CT. Calcified pleural plaques posterior right mid to lower lung are red emonstrated. No new suspicious nodules or masses. No pleural effusion or pneumothorax. MEDIASTINUM: There are no new greater than 1 cm hilar or mediastinal lymph nodes. Stable prominent thomas bcentimeter right hilar lymph node axial image 36. No cardiomegaly or pericardial effusion is seen. Other: There are stable prominent but subcentimeter bilateral axillary lymph nodes. LIVER/GB: No significant abnormality is appreciated. PANCREAS: No significant abnormality is seen. SPLEEN: No significant abnormality is seen. ADRENALS: No significant abnormality is seen. KIDNEYS: Stable simple appearing 1.5 cm cyst laterally upper pole level left kidney delayed axial cornelia ge 27. Symmetric cortical medullary uptake and excretion is seen. Stable cystic structure left pelvis axial image 114 consistent with dilated distal ureter on PET/CT is unchanged. BOWEL: Patient has very little intra-abdominal fat making evaluation suboptimal. Oral contrast only r eaches level of the splenic flexure on current study. There is no suspicious small or large bowel dil atation. GENITAL ORGANS: Prostate gland is stable and mildly enlarged. LYMPH NODES: No greater than 1cm abdominal or pelvic lymph nodes are appreciated. OSSEOUS STRUCTURES: Persistent sclerosis involving the upper sacrum coronal image 66 on axial image 1 04 is redemonstrated without significant interval change. No new osseous lesions are clearly present. Moderate narrowing and spurring of both hip joints is redemonstrated. OTHER: No significant additional abnormality is seen. IMPRESSION: No new mass or adenopathy identified to suggest neoplastic recurrence. Treated neoplasm r ight upper lung redemonstrated without significant change. Stable sclerosis upper sacrum felt to ref lect healing or healed insufficiency fracture without additional osseous lesions identified.
== END | disposition home or self-care (01) ==
LOC: RADCTMAIN 12:07
PROVIDERS: ATTEND Internal Medicine Hematology & Oncology
DX: Z03.89 Encounter for observation for other suspected diseases and conditions ruled out (principal); C34.90 Malignant neoplasm of unspecified part of unspecified bronchus or lung
CPT/HCPCS: 82565; 84520; 71260; 74177; 36415; Q9967

== ENCOUNTER → 2019-01-22 | Outpatient (CLI) | payer MEDICARE ==
--- NOTE | 2019-01-22 12:23 | CT ---
EXAMINATION TYPE: CT ChestAbdPelvis w con DATE OF EXAM: 01/22/2019 COMPARISON: CT chest abdomen and pelvis October 22, 2018 and older CTs. Prior PET/CT August 13, 2014 HISTORY: Lung cancer CT DLP: 985 mGycm. Automated Exposure Control for Dose Reduction was Utilized. CONTRAST: CT scan of the thorax, abdomen and pelvis is performed with oral and with IV Contrast, patient inject ed with 100 ml mL of Isovue 300. FINDINGS: LUNGS: Stable right upper lung scarring axial image 21 with posterior inferior extension. Calcified p leural plaques posteriorly right lung redemonstrated. No new suspicious nodules or masses. No recurre nt effusion. Right basilar linear scarring laterally near diaphragm again seen. No pleural effusion o r pneumothorax. MEDIASTINUM: There are no new greater than 1 cm hilar or mediastinal lymph nodes. Stable prominent b ut subcentimeter right hilar lymph node axial image 27. No cardiomegaly or pericardial effusion is s een. OTHER: Stable prominent but subcentimeter bilateral axillary lymph nodes.. LIVER/GB: No significant abnormality is appreciated. PANCREAS: No significant abnormality is seen. SPLEEN: No significant abnormality is seen. ADRENALS: No significant abnormality is seen. KIDNEYS: Simple appearing 1.5 cm thin-walled cyst laterally upper pole of the left kidney. Stable foc ally dilated distal ureter left pelvis axial image 112 when comparing with PET CT. BOWEL: Oral contrast reaches level of transverse colon. No suspicious small or large bowel dilatation . GENITAL ORGANS: Stable mildly enlarged prostate gland. LYMPH NODES: No greater than 1cm abdominal or pelvic lymph nodes are appreciated. OSSEOUS STRUCTURES: Persistent severe axial narrowing and spurring of both hip joints. Persistent scl erosis of the sacrum on coronal image 55 suspected healed insufficiency fracture. No new osseous lesi ons clearly identified. OTHER: No significant additional abnormality is seen. IMPRESSION: No suspicious new mass or adenopathy identified to suggest neoplastic recurrence.
== END | disposition home or self-care (01) ==
LOC: RADCTMAIN 08:49
PROVIDERS: ATTEND Internal Medicine Hematology & Oncology
DX: C34.90 Malignant neoplasm of unspecified part of unspecified bronchus or lung (principal)
CPT/HCPCS: 82565; 84520; 71260; 74177; 36415; Q9967

== ENCOUNTER → 2019-04-23 | Outpatient (CLI) | payer MEDICARE ==
--- NOTE | 2019-04-23 14:29 | CT ---
EXAMINATION TYPE: CT ChestAbdPelvis w con DATE OF EXAM: 04/23/2019 INDICATION: Lung cancer COMPARISON: 01/22/2019 CT DLP: 577.5 mGycm CONTRAST: Performed with Oral Contrast and with IV Contrast, patient injected with 100 mL of Isovue 300. TECHNIQUE: Axial images at 5 mm thick sections. Reconstructed images in the coronal plane. Delayed images through the kidneys. FINDINGS: CT CHEST: There is a stable pleural calcification along the posterior right midlung. Small density along the ma niurka fissure near the diaphragm is stable. There is an irregular density with spiculated margins along the major fissure on the right upper lung field measuring 0.8 cm. This appears stable. Series 4 imag e 25. Portion of the thyroid visualized is normal. No enlarged mediastinal or hilar adenopathy is evident. The ascending aorta diameter at the level of the main pulmonary artery is 2.9 cm. The main pulmonary artery diameter at the bifurcation is 2.[address] ABDOMEN: Liver: Normal Spleen: Normal Pancreas: Normal Adrenal glands: The adrenal glands are normal. Gallbladder: Normal Kidneys: No masses are evident. No hydronephrosis is present. There is a 1.5 cm cyst in the lateral upper pole left kidney measuring 13 Hounsfield units. Delayed images were obtained through the kidn eys, which remain unremarkable. Aorta: Vascular calcification is within the aorta. Inferior vena cava: Normal. CT PELVIS: Loops of bowel within the abdomen and pelvis are normal. There are loops of bowel which are incom pletely distended or lack oral contrast limiting their evaluation. Appendix: Not visualized. No suspicious changes for acute appendicitis are evident. Urinary bladder: Normal. Genitourinary structures: Prostate appears slightly prominent. There is a hypodense area within the l eft iliac chain region could be lymphocele measuring 6.3 x 3.0 cm. This was present previously. Osseous structures: No suspicious lytic or sclerotic lesions. Degenerative hip changes are present bi laterally. There may be a previously present mixed heterogeneity sclerotic area within the sacrum. Me tastatic lesion is not excluded. IMPRESSIONS: 1. Stable right apical scarring or mass. 2. Stable lymphocele versus hypodense mass in the left iliac chain region 3. Stable pleural plaque right chest. 4. Left renal cyst
== END | disposition home or self-care (01) ==
LOC: RADCTMAIN 07:52
PROVIDERS: ATTEND Internal Medicine Hematology & Oncology
DX: J92.9 Pleural plaque without asbestos (principal); N28.1 Cyst of kidney, acquired; C34.90 Malignant neoplasm of unspecified part of unspecified bronchus or lung
CPT/HCPCS: 82565; 84520; 71260; 74177; 36415; Q9967 ×2

== ENCOUNTER → 2019-08-10 | Outpatient (CLI) | payer MEDICARE ==
--- NOTE | 2019-08-10 12:16 | CT ---
EXAMINATION TYPE: CT ChestAbdPelvis w con DATE OF EXAM: 08/10/2019 INDICATION: Lung cancer. COMPARISON: 04/23/2029 CT DLP: 601.3 mGycm CONTRAST: Performed with Oral Contrast and with IV Contrast, patient injected with 100 mL of Isovue 300. TECHNIQUE: Axial images at 5 mm thick sections. Reconstructed images in the coronal plane. Delayed images through the kidneys. FINDINGS: CT CHEST: Portion of the thyroid visualized is normal. There is a 1.7 x 1.5 cm spiculated mass in the posterior right upper lung field, series 4 image 25. O n mediastinal windows this measures 0.9 cm which is smaller than 1.1 cm previous. There is some stable pleural thickening along the posterior right lung. Series 4 image 28. There is a larger pleural plaque along the posterior right lung measuring 2.6 x 1.0 cm. Series 4 image 39. This appears calcified. There is a 1.2 cm density within the major fissure just above the right diaphragm. Series 4 image 57. This measures 1.2 cm which is stable from comparison. No enlarged mediastinal or hilar adenopathy is evident. Small right infrahilar lymph node is present. Multiple axillary lymph nodes are present. The largest measures 1.0 cm on the right and 0.9 cm on th e left. The ascending aorta diameter at the level of the main pulmonary artery is 3.2 cm. The main pulmonary artery diameter at the bifurcation is 2.[address] ABDOMEN: Liver: Normal Spleen: Normal Pancreas: Normal Adrenal glands: The adrenal glands are normal. Gallbladder: Normal Kidneys: No masses are evident. No hydronephrosis is present. There is a cortical renal cyst on the left kidney measuring 1.3 cm present previously. Delayed images were obtained through the kidneys, which remain unremarkable. Aorta: Normal Inferior vena cava: Normal. CT PELVIS: Loops of bowel within the abdomen and pelvis are normal. There are loops of bowel which are incom pletely distended or lack oral contrast limiting their evaluation. Fecal debris is within the colon. Appendix: Not identified. No dilated tubular structures or inflammatory changes are identified. Urinary bladder: There appears to be a large hypodense oval in the left iliac chain and not greater c anal region. This may communicate with the urinary bladder. Urinary bladder diverticulum and lymphoce le are within the differential. This was present previously and appears stable. Current measurements 5.8 x 3.2 cm. Previous measurement 6.3 x 3.0 cm. Genitourinary structures: Prostate is prominent Osseous structures: Degenerative changes are at the bilateral hips. Facet degenerative changes within the lumbar spine. Suspicious lytic or sclerotic lesions to suggest metastatic disease is not evident . IMPRESSIONS: 1. Right lung spiculated mass. This is smaller on the mediastinal window measurements than previous e xam. 2. Stable calcified plaque posterior right lung. 3. Bilateral axillary lymphadenopathy, present previously. 4. Lymphocele versus bladder diverticulum left hemipelvis, stable.
== END | disposition home or self-care (01) ==
LOC: RADCTMAIN 09:25
PROVIDERS: ATTEND Internal Medicine Hematology & Oncology
DX: J98.4 Other disorders of lung (principal); R91.8 Other nonspecific abnormal finding of lung field; R59.1 Generalized enlarged lymph nodes; C34.90 Malignant neoplasm of unspecified part of unspecified bronchus or lung
CPT/HCPCS: 82565; 84520; 71260; 74177; 36415; Q9967 ×2

== ENCOUNTER → 2019-11-16 | Outpatient (CLI) | payer MEDICARE ==
[2019-11-16 09:00] LABS: African American GFR (CKD) >90 (>60 ml/min/1.73 sqM); Blood Urea Nitrogen 15 mg/dL (9-20); Non-African American GFR(CKD) >90 (>60 ml/min/1.73 sqM)
--- NOTE | 2019-11-16 11:54 | CT ---
EXAMINATION TYPE: CT ChestAbdPelvis w con DATE OF EXAM: 11/16/2019 COMPARISON: 08/10/2019, 04/23/2019, 01/22/2019 HISTORY: 63-year-old male Lung cancer. TECHNIQUE: Contiguous axial scanning of the chest, abdomen, and pelvis performed with IV Contrast, pa tient injected with 100 mL of Isovue M300. Delayed images through the kidneys were obtained. Coronal/ sagittal reconstructions performed. CT DLP: 578.8 mGycm Automated exposure control for dose reduction was used. FINDINGS: CHEST: Heart normal size without pericardial effusion. Slightly prominent bilateral hilar lymph nodes measuring up to 7 mm are unchanged at least 01/22/2019. No thoracic lymphadenopathy by CT size criteria. Spiculated opacity with distortion peripheral right upper lobe measures 1.6 x 1.0 cm and shows no sig nificant change back to at least 01/22/2019. Some surrounding groundglass density likely posttreatment change, also unchanged. Pleural plaques posteriorly right hemithorax are unchanged. Some nodular den sity lateral right base measuring 9 mm is also unchanged, possible nodular scarring. No consolidation or pleural effusion. ABDOMEN: No focal liver lesion or biliary ductal dilatation. Portal venous system is patent. Gallbladder, adrenal glands, right kidney, spleen (with small hilar and anterior splenules), and panc reas appear within normal limits. Stable 1.8 cm lateral cortical cyst left kidney. No dilated small bowel, free fluid, or free air. No mesenteric or retroperitoneal lymphadenopathy. No mesenteric or retroperitoneal lymphadenopathy. Mild to moderate stool burden. No pericolonic infla mmatory change. PELVIS: Circumferential bladder wall thickening. Prostate gland enlargement 5.6 cm. Redemonstrated dilatation of the distal left ureter measuring up to 5.6 x 2.2 cm no abnormal fluid collection otherwise seen i n the pelvis and no pelvic lymphadenopathy. BONES: Advanced degenerative changes both hips. Degenerative change right SI joint. Stable heterogeneous natividad earance to the sacrum. Degenerative disc disease mid to lower lumbar spine. No osseous destructive pr ocess. IMPRESSION: 1. STABLE 1.6 X 1.0 CM SPICULATED DENSITY PERIPHERAL RIGHT UPPER LOBE BACK TO AT LEAST 01/22/2019 SUGG ESTING SITE OF TREATED DISEASE. NO DISEASE PROGRESSION IDENTIFIED. 2. STABLE CHRONICALLY PATULOUS/DILATED DISTAL LEFT URETER. 3. 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 CIRCUMFERENTIAL BLADDER WALL THICKENING COULD REPRESENT CHRONIC ALEJANDRO DDER WALL HYPERTROPHY OR CYSTITIS.
== END | disposition home or self-care (01) ==
LOC: RADCTMAIN 08:22
PROVIDERS: ATTEND Internal Medicine Hematology & Oncology
DX: J98.4 Other disorders of lung (principal); N40.0 Benign prostatic hyperplasia without lower urinary tract symptoms; N32.89 Other specified disorders of bladder; C34.90 Malignant neoplasm of unspecified part of unspecified bronchus or lung
CPT/HCPCS: 82565; 84520; 71260; 74177; 36415; Q9967 ×2

== ENCOUNTER → 2020-02-15 | Outpatient (CLI) | payer MEDICARE ==
[2020-02-15 10:37] LABS: African American GFR (CKD) >90 (>60 ml/min/1.73 sqM); Blood Urea Nitrogen 15 mg/dL (9-20); Non-African American GFR(CKD) 82 (>60 ml/min/1.73 sqM)
--- NOTE | 2020-02-15 13:36 | CT ---
EXAMINATION TYPE: CT ChestAbdPelvis w con DATE OF EXAM: 02/15/2020 INDICATION: Lung cancer follow up COMPARISON: 11/16/2019 CT DLP: 512.6 mGycm CONTRAST: Performed with Oral Contrast and with IV Contrast, patient injected with 100 mL of Isovue 300. TECHNIQUE: Axial images at 5 mm thick sections. Reconstructed images in the coronal plane. Delayed images through the kidneys. FINDINGS: CT CHEST: Portion of the thyroid visualized is normal. There is a triangular density on lung windows within the right upper lobe measuring 1.4 x 1.9 cm. Ser ies 4 image 23. Previous measurement 1.0 x 1.6 cm This extends towards the hilum. There is a pleural- based density in the posterior right midlung measuring 1.3 x 0.8 cm. Additional pleural plaque is inf erior measuring 2.5 x 1.0 cm. Pleural plaquing appears stable over the interval. There is a 1.1 cm de nsity in the lateral right lung. Series 4 image 56. No enlarged mediastinal or hilar adenopathy is evident. The ascending aorta diameter at the level of the main pulmonary artery is 2.8 cm. The main pulmonary artery diameter at the bifurcation is 2.[address] ABDOMEN: Liver: Normal Spleen: Normal Pancreas: Normal Adrenal glands: The adrenal glands are normal. Gallbladder: Gallstone may be present. This could be volume averaging with a contrast-filled loop of bowel adjacent. Series 3 image 74. Kidneys: No masses are evident. No hydronephrosis is present. No cysts are present. Delayed images were obtained through the kidneys, which remain unremarkable. Aorta: Vascular calcification is within the aorta. Inferior vena cava: Poorly visualized. Correlate for low volume status. CT PELVIS: Small fat-containing bilateral inguinal hernias are present. Loops of bowel within the abdomen and pelvis are normal. There are loops of bowel which are incom pletely distended or lack oral contrast limiting their evaluation. Large fecal bolus is at the rectum . Appendix: Normal as visualized. Urinary bladder: Normal. Within the left hemipelvis is a large tubular structure which appears to be the distal left ureter. Ureteral dilatation begins at the pelvic inlet and expands into the iliac maine in region. No suspicious etiology for obstruction is identified. Hydronephrosis is not evident. Diffe rential diagnosis could include lymphocele. Genitourinary structures: Prostate is enlarged. Osseous structures: No suspicious lytic or sclerotic lesions. IMPRESSIONS: 1. 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 2. Focal area of increased density within the right midlung is slightly larger than comparison. 3. Stable appearing pleural plaquing posterior right midlung. 4. Nodule peripheral right lung base has enlarged from 0.9 cm to 1.1 cm. 5. Stable appearance of a left megaureter
== END | disposition home or self-care (01) ==
LOC: RADCTMAIN 09:27
PROVIDERS: ATTEND Internal Medicine Hematology & Oncology
DX: J98.4 Other disorders of lung (principal); R91.1 Solitary pulmonary nodule; J92.9 Pleural plaque without asbestos; N28.82 Megaloureter; C34.90 Malignant neoplasm of unspecified part of unspecified bronchus or lung; Z92.21 Personal history of antineoplastic chemotherapy
CPT/HCPCS: 82565; 84520; 71260; 74177; 36415; Q9967

== ENCOUNTER → 2020-05-16 | Outpatient (CLI) | payer MEDICARE ==
--- NOTE | 2020-05-16 15:32 | CT ---
EXAMINATION TYPE: CT ChestAbdPelvis w con DATE OF EXAM: 05/16/2020 COMPARISON: 02/15/2020, 11/16/2019, 08/10/2019 HISTORY: 64-year-old male C34.90, follow up lung cancer TECHNIQUE: Contiguous axial scanning of the chest, abdomen, and pelvis performed with IV Contrast, pa tient injected with 100 mL of Isovue 300. Delayed images through the kidneys were obtained. Coronal/s agittal reconstructions performed. CT DLP: 541.8 mGycm Automated exposure control for dose reduction was used. FINDINGS: CHEST: Heart normal size without pericardial effusion. Aorta normal caliber with bovine configuration to the aortic arch. Prominent but nonenlarged left axillary lymph nodes are unchanged. Borderline size. 9 mm right hilar lymph node is unchanged. Otherwise, no thoracic lymphadenopathy. Mild centrilobular emphysema. 1.6 x 1.4 cm spiculated density along the periphery of the right upper lobe remains relatively stable . Contiguous 9 mm spiculated nodularity is also unchanged, axial image 26. Calcified subpleural nodularity posterior right midlung and right base is stable. 1 cm peripheral right basilar nodularity not significantly changed. No consolidation or pleural effusion. ABDOMEN: NO focal liver lesion. Mild prominence of the bile duct is unchanged. Portal venous system is patent. No abnormal gallbladder distention. Adrenal glands, right kidney, spleen, and pancreas appear within normal limits. 1.9 cm cortical cyst lateral upper pole left kidney unchanged. No dilated small bowel, free fluid, or free air. No mesenteric or retroperitoneal lymphadenopathy see n. Oral contrast progressed to the upper ascending colon. Scattered moderate stool. No pericolonic infla mmatory change. PELVIS: Mild circumferential bladder wall thickening. Prostate gland is enlarged at 5.4 cm wide. Patulous dis maria elena left ureter measuring up to 5.8 x 2.8 cm, unchanged. Tiny bilateral inguinal hernias unchanged. N o abnormal fluid collection in the pelvis or pelvic lymphadenopathy. BONES: Severe degenerative change of the hips. Moderate spondylotic change mid and lower lumbar spine. No os seous destructive process. IMPRESSION: 1. COPD WITH MILD EMPHYSEMA. 2. SPICULATED 1.6 CM DENSITY ALONG THE PERIPHERY OF THE RIGHT UPPER LOBE AND CONTIGUOUS 9 MM NODULARI TY REMAINS STABLE, CORRESPONDING TO THE SITE OF TREATED DISEASE. ADDITIONAL 1 CM RIGHT BASILAR PULMON RIAZ NODULE IS UNCHANGED. 3. NO EVIDENCE FOR PROGRESSION OR METASTATIC DISEASE.
== END | disposition home or self-care (01) ==
LOC: RADCTMAIN 11:23
PROVIDERS: ATTEND Internal Medicine Hematology & Oncology
DX: J43.9 Emphysema, unspecified (principal); J98.4 Other disorders of lung; R91.8 Other nonspecific abnormal finding of lung field; C34.90 Malignant neoplasm of unspecified part of unspecified bronchus or lung
CPT/HCPCS: 82565; 84520; 71260; 74177; 36415; Q9967

== ENCOUNTER → 2020-08-15 | Outpatient (CLI) | payer MEDICARE ==
--- NOTE | 2020-08-15 12:18 | CT ---
EXAMINATION TYPE: CT ChestAbdPelvis w con DATE OF EXAM: 08/15/2020 COMPARISON: 05/16/2020 HISTORY: Lung and skin cancer CT DLP: 533 mGycm CONTRAST: CT scan of the chest, abdomen and pelvis is performed with Oral Contrast and with IV Contrast, patien t injected with 80 mL of Isovue 300. CT Chest: LUNGS: Spiculated density right upper lobe persists although is smaller in size and measures 1.2 cm m aximal dimension versus 1.6 cm previously. Stable contiguous 9 mm density noted as well. Calcified thomas bpleural nodularity persists right mid lung and right lung base. 1 cm peripheral nodule right lower l obe is unchanged. No new nodules identified. MEDIASTINUM: Thoracic aorta is of normal caliber. The heart is not enlarged. No evidence for media stinal mass or adenopathy. HILAR STRUCTURES: No evidence for mass. No hilar adenopathy is appreciated. OTHER: No significant abnormality. CONTRAST CT ABDOMEN AND PELVIS FINDINGS: LIVER/GB: No calcified gallstones. No space occupying hepatic lesion. Biliary tree is of normal ca liber. PANCREAS: No inflammation. No distinct mass. SPLEEN: No splenic enlargement. No lesion seen. ADRENALS: No nodule. No thickening. KIDNEYS/BLADDER: No hydronephrosis. No nephrolithiasis. Simple cyst left kidney is stable. BOWEL: N ormal appendix. Normal bowel caliber. No inflammation. GENITAL ORGANS: Prostate gland enlargement. Cystic structure within the left hemipelvis is again note d and may reflect a dilated distal left ureter. LYMPH NODES: No greater than 1cm abdominal or pelvic lymph nodes are appreciated. AORTA: No significant abnormality. OSSEOUS STRUCTURES: Mottled lesion within the S1 and S2 regions of the sacrum. Overall no change appr eciated. No new lesions seen. OTHER: No significant additional abnormality is seen. IMPRESSION: 1. Spiculated lesion right upper lobe persists although is somewhat smaller in size. Additional areas of nodularity remain stable. No new lesions seen. 2. Stable mild lesion within the S1 and S2 regions.
== END | disposition home or self-care (01) ==
LOC: RADCTMAIN 09:19
PROVIDERS: ATTEND Internal Medicine Hematology & Oncology
DX: J98.4 Other disorders of lung (principal); R91.8 Other nonspecific abnormal finding of lung field; C34.90 Malignant neoplasm of unspecified part of unspecified bronchus or lung
CPT/HCPCS: 82565; 84520; 71260; 74177; 36415; Q9967

== ENCOUNTER → 2020-11-14 | Outpatient (CLI) | payer MEDICARE ==
[2020-11-14 12:51] LABS: African American GFR (CKD) >90 (>60 ml/min/1.73 sqM); Blood Urea Nitrogen 15 mg/dL (9-20); Non-African American GFR(CKD) 80 (>60 ml/min/1.73 sqM)
--- NOTE | 2020-11-15 12:09 | CT ---
EXAMINATION TYPE: CT ChestAbdPelvis wo/w con DATE OF EXAM: 11/14/2020 COMPARISON: Prior CT August 15, 2020 and older CTs. HISTORY: Follow up for lung cancer, observe for mets. CT DLP: 909.9 mGycm. Automated Exposure Control for Dose Reduction was Utilized. CONTRAST: CT scan of the thorax, abdomen and pelvis is performed with oral and without and with IV Contrast, pa tient injected with 100ml mL of Isovue 300. FINDINGS: LUNGS: Persistent right upper lung scarring axial images 22 through 25. More spiculated nodular compo nent measuring 1.6 x 1.3 cm image 23 series 7 not significant change from most recent studies and no definitive postcontrast enhancement. Calcified pleural plaques posteriorly right lower lobe redemonst rated. No new suspicious nodules or masses. No recurrent effusion. Right basilar linear scarring late rally near diaphragm again seen with slight nodular component laterally that is stable and demonstrat es no enhancement. No pleural effusion or pneumothorax. MEDIASTINUM: There are no new greater than 1 cm hilar or mediastinal lymph nodes. Stable prominent b ut subcentimeter right hilar lymph node axial image 29 current study. No cardiomegaly or pericardial effusion is seen. OTHER: Stable prominent but subcentimeter bilateral axillary lymph nodes are redemonstrated LIVER/GB: No significant abnormality is appreciated. PANCREAS: No significant abnormality is seen. SPLEEN: No significant abnormality is seen. ADRENALS: No significant abnormality is seen. KIDNEYS: Simple appearing 1.5 cm thin-walled cyst laterally upper pole of the left kidney redemonstra ghassan. Stable focally dilated distal ureter left pelvis axial image 112 when comparing with PET CT. BOWEL: Oral contrast reaches level of cecum on current study. No suspicious small or large bowel dila tation. Patient has very little intra-abdominal fat. GENITAL ORGANS: Enlarged prostate gland redemonstrated. LYMPH NODES: No greater than 1cm abdominal or pelvic lymph nodes are appreciated. OSSEOUS STRUCTURES: Persistent severe axial joint space narrowing and spurring of both hip joints. Pe rsistent sclerosis of the sacrum on coronal image 59 suspected healed insufficiency fracture. No new osseous lesions clearly identified. OTHER: No significant additional abnormality is seen. IMPRESSION: No suspicious new or enlarging mass or adenopathy identified to suggest active neoplastic recurrence.
== END | disposition home or self-care (01) ==
LOC: RADCTMAIN 12:18
PROVIDERS: ATTEND Internal Medicine Hematology & Oncology
DX: J92.9 Pleural plaque without asbestos (principal); N28.1 Cyst of kidney, acquired; Z85.118 Personal history of other malignant neoplasm of bronchus and lung
CPT/HCPCS: 82565; 84520; 71270; 74178; 36415; Q9967

== ENCOUNTER → 2021-05-15 | Outpatient (CLI) | payer MEDICARE ==
--- NOTE | 2021-05-15 12:29 | CT ---
EXAMINATION TYPE: CT ChestAbdPelvis w con DATE OF EXAM: 05/15/2021 COMPARISON: Most recent CT November 14, 2020 and older studies HISTORY: Carcinoma of lung originally diagnosed 2015 CT DLP: 509.4 mGycm. Automated Exposure Control for Dose Reduction was Utilized. CONTRAST: CT scan of the thorax, abdomen and pelvis is performed with oral and with IV Contrast, patient inject ed with 100 mL of Isovue 300. FINDINGS: LUNGS: Persistent stable right upper lung scarring axial images 20 through 24 posteriorly. More spicu lated nodular component measuring1.4 x 1.1 cm axial image 21 series 4 not significant change from mos t recent. Calcified pleural plaques posteriorly right lower lobe redemonstrated. No new suspicious gr eater than 5 mm nodules or masses. No recurrent effusion. Right basilar linear scarring laterally candida r diaphragm again seen with slight nodular component axial image 53 laterally is not significantly ch anged from most recent studies. No pleural effusion or pneumothorax. MEDIASTINUM: There are no new greater than 1 cm hilar or mediastinal lymph nodes. Stable prominent b orderline enlarged right hilar lymph node axial image 31 current study from most recent studies. No cardiomegaly or pericardial effusion is seen. OTHER: Stable prominent but subcentimeter bilateral axillary lymph nodes are redemonstrated. LIVER/GB: No significant abnormality is appreciated. PANCREAS: No significant abnormality is seen. SPLEEN: No significant abnormality is seen. ADRENALS: No significant abnormality is seen. KIDNEYS: Simple appearing 1.8 cm thin-walled cyst laterally upper pole of the left kidney redemonstra ghassan axial image 75. Stable focally dilated distal ureter left pelvis axial image 112 when comparing w ith PET CT. BOWEL: Oral contrast reaches does not reach level of terminal ileum on current study making evaluatio n of distal bowel suboptimal. No suspicious small or large bowel dilatation. Patient has little intra -abdominal fat. GENITAL ORGANS: Enlarged prostate gland redemonstrated. LYMPH NODES: No new greater than 1cm abdominal or pelvic lymph nodes are appreciated. OSSEOUS STRUCTURES: Persistent severe axial joint space narrowing and spurring of both hip joints. Pe rsistent sclerosis of the central sacrum on coronal image 58 suspected healed insufficiency fracture. No new osseous lesions clearly identified. Spine is straightened on sagittal images with multilevel vacuum disc phenomenon. OTHER: No significant additional abnormality is seen. IMPRESSION: No suspicious new or enlarging mass or adenopathy identified to suggest active neoplastic recurrence. No significant change from most recent CTs.
== END | disposition home or self-care (01) ==
LOC: RADCTMAIN 10:22
PROVIDERS: ATTEND Internal Medicine Hematology & Oncology
DX: C34.90 Malignant neoplasm of unspecified part of unspecified bronchus or lung (principal); I11.0 Hypertensive heart disease with heart failure; I50.9 Heart failure, unspecified
CPT/HCPCS: 82565; 84520; 71260; 74177; 36415; Q9967

== ENCOUNTER → 2021-11-14 | Outpatient (CLI) | payer MEDICARE ==
[2021-11-14 11:52] LABS: African American GFR (CKD) >90 (>60 ml/min/1.73 sqM); Blood Urea Nitrogen 18 mg/dL (9-20); Non-African American GFR(CKD) 80 (>60 ml/min/1.73 sqM)
--- NOTE | 2021-11-15 09:26 | CT ---
EXAMINATION TYPE: CT ChestAbdPelvis w con CT DLP: 582.2 mGycm, Automated exposure control for dose reduction was used. DATE OF EXAM: 11/14/2021 1:10 PM COMPARISON: CT chest abdomen pelvis 05/15/2021 with multiple priors dating back to 08/12/2017. CLINICAL INDICATION:Male, 65 years old with history of C34.90 MALIGNANT NEOPLASM OF UNSP PART OF UNSP BRO, obs for mets. lung ca Technique: Multiple axial images of the chest, abdomen, and pelvis were obtained following the intrav enous administration of 70 mL Isovue-300. Two-dimensional coronal and sagittal reconstructions were o btained. Findings: CHEST: LUNGS/ PLEURA: Spiculated nodule within the right upper lobe adjacent to the fissure is felt to be sl owly growing over time now measuring 17 x 15 mm in today's exam. This is larger when comparing to mor e remote priors for example in 2019 and measured 15 x 12 mm. And in 08/12/2017 measuring 15 x 11 mm. No dular pleural thickening with calcifications also slowly increased in size now measuring 12 mm (serie s 8 image 38) previously 7 mm in on 08/12/2017. AIRWAY: Patent and unremarkable.. HEART: Size within normal limits.. MEDIASTINUM: No gross evidence of adenopathy. VASCULATURE: No aortic aneurysm. MUSCULOSKELETAL: No acute osseous abnormalities. SOFT TISSUES/LYMPH NODES: Unremarkable. LOWER NECK: No significant findings. ABDOMEN: ABDOMEN LIVER: Unremarkable GALLBLADDER AND BILE DUCTS: Unremarkable. PANCREAS: Unremarkable. SPLEEN: Unremarkable. ADRENAL GLANDS: Unremarkable. KIDNEYS AND URETERS: No evidence of hydronephrosis or renal calculus. The ureters are unremarkable. PELVIS BLADDER: Unremarkable REPRODUCTIVE: Prostate is enlarged in size measuring 5.4 cm in transverse dimension. ABDOMEN & PELVIS STOMACH AND BOWEL: No evidence of bowel obstruction. There is a large stool burden throughout the col on. PERITONEUM: No evidence of pneumoperitoneum or free fluid. VASCULATURE: No evidence of aortic aneurysm. MUSCULOSKELETAL: No acute osseous abnormalities. Multilevel disc degeneration changes throughout the spine and moderate multilevel neural foraminal stenosis secondary to facet joint arthropathy. There i s straightening of the visualized spine. End-stage osteoarthrosis changes to the hips with bone-on-ara ne articulation. There is progression of irregular bony remodeling of the sacrum S1 and S2 with more lytic appearance when comparing to remote priors. LYMPH NODES: No gross evidence for lymphadenopathy. SOFT TISSUE/ABDOMINAL WALL: Unremarkable IMPRESSION: 1. Indolent growth of left upper lobe spiculated pulmonary nodule when comparing to prior's in 2019 and older. Consider nuclear medicine PET scan for further evaluation for metabolic activity. 2. Persistent mottled appearance of the sacrum which is overall felt to be more lytic appearing over time when comparing to older priors 2019 studies. This can be further assessed on the aforementioned PET 3. Prostatomegaly. 4. End-stage osteoarthrosis of the hips.
== END | disposition home or self-care (01) ==
LOC: RADCTMAIN 10:50
PROVIDERS: ATTEND Internal Medicine Hematology & Oncology
DX: C34.90 Malignant neoplasm of unspecified part of unspecified bronchus or lung (principal); M16.0 Bilateral primary osteoarthritis of hip
CPT/HCPCS: 82565; 84520; 71260; 74177; 36415; Q9967

== ENCOUNTER → 2022-02-18 | Outpatient (CLI) | payer MEDICARE ==
[2022-02-18 09:55] LABS: African American GFR (CKD) >90 (>60 ml/min/1.73 sqM); Blood Urea Nitrogen 16 mg/dL (9-20); Non-African American GFR(CKD) 82 (>60 ml/min/1.73 sqM)
--- NOTE | 2022-02-18 12:44 | CT ---
EXAMINATION TYPE: CT ChestAbdPelvis w con DATE OF EXAM: 02/18/2022 INDICATION: hx of lung cancer, hx of hernia COMPARISON: 11/14/2021 CT DLP: 485.90 mGycm CONTRAST: Performed with Oral Contrast and with IV Contrast, patient injected with 100mL mL of Isovue 370. TECHNIQUE: Axial images at 5 mm thick sections. Reconstructed images in the coronal plane. Delayed images through the kidneys. FINDINGS: CT CHEST: Portion of the thyroid visualized is normal. No suspicious lung nodules or focal infiltrates are present. There is a 1.6 x 2.0 cm spiculated density within the right mid lung. Series 5 image 27. This has enl arged from 1.5 x 1.7 cm previous. There is a 0.5 cm pleural-based nodular density in the posterior right midlung. Series 5 image 30. Th is was present previously. There is stable 1.2 cm pleural thickening along the posterior right lung margin. Additional 2.4 x 1.1 cm thickening remains present. There is a 0.5 cm peripheral density at the right lateral costophrenic angle. The ascending aorta diameter at the level of the main pulmonary artery is 2.8 cm. The main pulmonary artery diameter at the bifurcation is 2.[address] ABDOMEN: Liver: Normal Spleen: Normal Pancreas: Normal Adrenal glands: The adrenal glands are normal. Gallbladder: Normal Kidneys: No masses are evident. No hydronephrosis is present. No cysts are present. Cortical renal cyst is evident on the delayed images lateral mid-pole left kidney. Aorta: Normal Inferior vena cava: Normal. CT PELVIS: Loops of bowel within the abdomen and pelvis are normal. This study is a lateral contrast limitin g bowel evaluation. Appendix: Not identified. No dilated tubular structure or inflammatory changes evident. Urinary bladder: Diffusely thickened urinary bladder wall Genitourinary structures: Prostate is somewhat prominent. Osseous structures: No suspicious lytic or sclerotic lesions. Degenerative changes at the bilateral h ips. There is a lytic area within the right sacrum. Degenerative disc changes are present L5-S1. There is an enlarged hypoechoic area with extension through the greater canal region. A lymphocele sh ould be considered measuring 6.0 x 3.3 cm. Enlarged lymphadenopathy is not otherwise evident. IMPRESSIONS: 1. Continued slow enlargement of the spiculated mass right midlung. 2. Pleural-based thickening and peripheral lung densities in the right midlung have stable appearance from comparison. 3. Lytic right sacral lesion again evident. 4. Suspected stable lymphocele left iliac chain
== END | disposition home or self-care (01) ==
LOC: RADCTMAIN 09:11
PROVIDERS: ATTEND Internal Medicine Hematology & Oncology
DX: C34.91 Malignant neoplasm of unspecified part of right bronchus or lung (principal)
CPT/HCPCS: 82565; 84520; 71260; 74177; 36415; Q9967

== ENCOUNTER → 2022-05-10 | Outpatient (CLI) | payer MEDICARE ==
--- NOTE | 2022-05-10 13:16 | CT ---
EXAMINATION: CT CHEST, ABDOMEN AND PELVIS WITH IV CONTRAST DATE OF EXAMINATION: 05/10/2022. COMPARISON: 2021. INDICATION: Follow-up for lung cancer. PROCEDURE: Axial CT of the chest, abdomen and pelvis was performed following the intravenous adminis tration of 70 ml Isovue 300. Coronal and sagittal reformats were performed. CT dose lowering techniqu es were used, to include: automated exposure control, adjustment for patient size, and/or use of iter ative reconstruction. FINDINGS: CHEST: Mediastinum and Raven: There is no axillary, mediastinal or hilar lymphadenopathy. Pleural and Pericardial spaces: There are no pleural or pericardial effusions. Cardiovascular: The thoracic aorta is normal in size without evidence of aneurysm or dissection. Pulmonary Artery: There are no central pulmonary arterial filling defects. Lung Parenchyma and Airways: There is a 1.6 cm irregular nodule within the right upper lobe on series 4 image 23 which is unchanged since the previous examination. Some calcified areas of lobularity zina ng the posterior margin of the superior segment of the right lower lobe which is unchanged. Nodular d ensity within the right lung base measuring 8.8 mm on series 4 image 55 is unchanged. No new nodules are otherwise seen. There is no focal area of consolidation. ABDOMEN: Liver and Biliary system: Normal. Adrenal glands: Normal. Kidneys and ureters: Unchanged small cyst in the upper pole of the left kidney. The kidneys otherwis e appear unremarkable. Spleen: Normal. Pancreas: Normal. Gallbladder: Normal. Lymph nodes, Peritoneum and mesentery: There is no mesenteric or retroperitoneal lymphadenopathy. Gastrointestinal tract: There are no dilated loops of bowel or free intraperitoneal air. . The appe ndix is normal. Aorta/IVC: Aorta normal. No aortic aneurysm or dissection. IVC normal. Abdominal wall: Normal. PELVIS: Fluid: There is no free fluid in the pelvis. Lymph Nodes: There is no pelvic or inguinal lymphadenopathy.. Urinary bladder: Normal. BONES: Mild to moderate osteoarthritis of the hip joint spaces bilaterally. Lytic and sclerotic lesi on within the sacrum appears unchanged. Osseous lesions are seen.. ADDITIONAL SIGNIFICANT FINDINGS: Prostate is mildly enlarged. Cystic structure within the left pelv ic sidewall is likely stable and benign is decreased in size since the previous examination and measu res 3.9 x 2.5 cm, previously 5.9 x 3.3 cm. IMPRESSION: 1. No significant change in the spiculated nodule in the right upper lobe when compared to the previo us examination. 2. No significant change in the next lytic and sclerotic lesion within the sacrum. 3. Additional findings are unchanged since the previous examination. Overall the exam appears not sig nificantly changed.
== END | disposition home or self-care (01) ==
LOC: RADCTMAIN 09:16
PROVIDERS: ATTEND Internal Medicine Hematology & Oncology
DX: C34.91 Malignant neoplasm of unspecified part of right bronchus or lung (principal); R91.1 Solitary pulmonary nodule; M89.9 Disorder of bone, unspecified
CPT/HCPCS: 82565; 84520; 71260; 74177; 36415; Q9967

== ENCOUNTER → 2022-08-09 | Outpatient (CLI) | payer MEDICARE ==
[2022-08-09 09:43] LABS: African American GFR (CKD) >90 (>60 ml/min/1.73 sqM); Blood Urea Nitrogen 14 mg/dL (9-20); Non-African American GFR(CKD) 85 (>60 ml/min/1.73 sqM)
--- NOTE | 2022-08-09 12:31 | CT ---
EXAMINATION TYPE: CT ChestAbdPelvis w con DATE OF EXAM: 08/09/2022 COMPARISON: Most recent CT April 10, 2022 and older studies HISTORY: Lung Cancer CT DLP: 1157 mGycm. Automated Exposure Control for Dose Reduction was Utilized. CONTRAST: CT scan of the thorax, abdomen and pelvis is performed with oral and with IV Contrast, patient inject ed with 100 ml mL of Isovue 300. FINDINGS: LUNGS: There is improvement in the 1.8 cm spiculated right upper lung nodule which is now not well se en on axial images may measure roughly 9 mm image 55. There is new consolidation with air bronchogram s extending laterally and posteriorly at this level presumed posttreatment change. Calcified pleura or pleural plaques posteriorly right lower lobe redemonstrated. No new suspicious gr eater than 5 mm nodules or masses. Right basilar linear scarring laterally near diaphragm again seen with slight 8 x 5 nodular component axial image 57 laterally is not significantly changed from most recent studies. No pleural effusion or pneumothorax seen bilaterally. MEDIASTINUM: There are no new greater than 1 cm hilar or mediastinal lymph nodes. Stable prominent b orderline enlarged right hilar lymph node axial image 30 current study from most recent studies. No cardiomegaly or pericardial effusion is seen. OTHER: Stable prominent but subcentimeter bilateral axillary lymph nodes are redemonstrated. LIVER/GB: No significant abnormality is appreciated. PANCREAS: No significant abnormality is seen. SPLEEN: No significant abnormality is seen. ADRENALS: No significant abnormality is seen. KIDNEYS: Simple appearing 1.8 cm thin-walled cyst laterally upper pole of the left kidney redemonstra ghassan axial image 75. Stable focally dilated distal ureter left pelvis axial image 115 when comparing w ith PET CT. BOWEL: Oral contrast reaches does not reach level of terminal ileum on current study making evaluatio n of distal bowel suboptimal. No suspicious small or large bowel dilatation. Patient has little intra -abdominal fat. GENITAL ORGANS: Enlarged prostate gland redemonstrated. LYMPH NODES: No new greater than 1cm abdominal or pelvic lymph nodes are appreciated. OSSEOUS STRUCTURES: Persistent severe axial joint space narrowing and spurring of both hip joints. Nonspecific lucent lesion with surrounding sclerosis right aspect of sacrum measuring 4.1 x 3.8 cm ax ial image 104 is redemonstrated similar appearance to most recent CT. Neoplastic involvement at this level cannot be excluded. OTHER: No significant additional abnormality is seen. IMPRESSION: Positive treatment response to the right upper lung spiculated nodule. There is new irreg ular larger consolidation with air bronchograms presumed posttreatment change. Right sacral lesion re demonstrated. Metastatic disease cannot be excluded as there is some central lucency and not as much suspected sclerosis would be expected for healing or healed insufficiency fracture. Follow-up is advi sed.
== END | disposition home or self-care (01) ==
LOC: RADCTMAIN 08:51
PROVIDERS: ATTEND Internal Medicine Hematology & Oncology
DX: C34.91 Malignant neoplasm of unspecified part of right bronchus or lung (principal); R91.1 Solitary pulmonary nodule; M89.9 Disorder of bone, unspecified; Z03.89 Encounter for observation for other suspected diseases and conditions ruled out
CPT/HCPCS: 82565; 84520; 71260; 74177; 36415; Q9967

== ENCOUNTER → 2022-09-18 | Outpatient (CLI) | payer MEDICARE ==
--- NOTE | 2022-09-18 12:48 | MR ---
EXAMINATION TYPE: MR lumbar spine wo/w con DATE OF EXAM: 09/18/2022 COMPARISON: Multiple CT chest abdomen pelvis with most recent 08/09/2022. HISTORY: Lower back pain , LLE radiculopathy. Lung cancer with mets to the sacrum. TECHNIQUE: Multiplanar, multisequence images of the lumbar spine were acquired without and with 6.5 mL intraveno us Gadavist gadolinium contrast. Expansile mixed T1/T2 heterogenous lesion involving the S1 and S2 vertebral bodies with extension int o the central spinal canal with moderate to severe effacement. Additionally there is abnormal heterog enous low T1 signal with corresponding high T2 signal involving the L5 vertebral body. Both lesions d emonstrate heterogenous enhancement and are most consistent with metastasis. There is enhancement zina ng the anterior epidural space the L5 level. T12-L1: Right central disc protrusion with mild effacement of the anterior thecal sac. Bilateral face t arthropathy with ligamentum flavum buckling contribute to mild spinal canal stenosis. The neural fo ramina are patent bilaterally. L1-L2: Broad-based disc bulge with ligamentum flavum buckling and facet arthropathy contribute to min imal central canal stenosis foramina patent bilaterally. L2-L3: Broad-based disc bulge with ligamentum flavum buckling and facet arthropathy contribute to min imal central canal stenosis foramina patent bilaterally. L3-L4: Broad-based disc bulge with ligamentum flavum buckling and facet arthropathy contribute to min imal central canal stenosis. Mild bilateral neuroforaminal stenosis. L4-L5: Central disc protrusion superimposed upon a broad-based disc bulge with ligamentum flavum floyd ling and bilateral facet arthropathy contributing to moderate spinal canal stenosis. Moderate bilater al neural foraminal stenosis. L5-S1: Broad-based disc bulge with bilateral facet arthropathy and ligamentum flavum buckling contrib uting to mild to moderate spinal canal stenosis. Severe bilateral neuroforaminal stenosis. Redemonstrated show focally dilated left distal ureter. IMPRESSION: 1. Osseous metastasis involving the L5 vertebral body and sacrum with moderate to severe spinal faisal l stenosis at these levels. There is enhancement along the anterior epidural space at these levels. 2. L4-L5 disc herniation with ligamentum flavum buckling and facet arthropathy contribute to mild ce ntral canal stenosis. 3. T12-L1 right central disc herniation with ligament flavum buckling facet arthropathy contributes to mild central canal stenosis. 4. Multilevel degenerative disc disease and facet arthropathy as described above.
== END | disposition home or self-care (01) ==
LOC: RADMRIMAIN 11:01
PROVIDERS: ATTEND Orthopaedic Surgery Orthopaedic Surgery of the Spine
DX: M47.26 Other spondylosis with radiculopathy, lumbar region (principal); M51.16 Intervertebral disc disorders with radiculopathy, lumbar region; C79.51 Secondary malignant neoplasm of bone; M99.73 Connective tissue and disc stenosis of intervertebral foramina of lumbar region
CPT/HCPCS: 72158; A9585

== ENCOUNTER → 2022-09-19 | Outpatient (CLI) | payer MEDICARE ==
--- NOTE | 2022-09-20 18:13 | MR ---
EXAMINATION TYPE: MR pelvis wo/w con DATE OF EXAM: 09/19/2022 COMPARISON: CT 08/09/2022 HISTORY: 66-year-old male M54.16, M47.817 Left leg pain, left foot drop, low back pain. History of ca ncer in lungs and tailbone Technique: Multiplanar, multisequence images of the pelvis were obtained before and after administrat ion of 6.5 mL intravenous Gadavist gadolinium contrast. FINDINGS: Abnormal heterogeneous lesion within the median, right paramedian S1 and S2 segments of the sacrum. T his measures up to 5.8 cm wide by 3.5 cm AP by 5.8 cm craniocaudal. There is focal extension to effac e the spinal canal opposite the S1 level. Multiple sacral neuroforamen are disrupted by the mass. Some internal cystic components are present and there may be a couple small fluid/fluid levels. Areas of heterogeneous postcontrast enhancement are present within. Reactive edema throughout both sacral ala. Moderate degenerative change in both hips with axial joint space narrowing and prominent marginal spu rring. Small bilateral joint effusions. IMPRESSION: 1. Heterogeneous mass centered within the S1 and S2 sacral segments. There may be some underlying sma ll fluid/fluid levels. There is associated heterogeneous enhancement and reactive edema in both sacra l ala. 2. Mass measures up to 5.8 x 5.8 x 3.5 cm with focal extension to efface the spinal canal opposite th e S1 level. Multiple sacral neuroforamen are disrupted by the mass. 3. In addition to metastatic disease, consider the possibility of giant cell tumor and aneurysmal bon e cyst.
== END | disposition home or self-care (01) ==
LOC: RADMRIMAIN 12:08
PROVIDERS: ATTEND Orthopaedic Surgery Orthopaedic Surgery of the Spine
DX: C79.51 Secondary malignant neoplasm of bone (principal); C34.91 Malignant neoplasm of unspecified part of right bronchus or lung; M47.27 Other spondylosis with radiculopathy, lumbosacral region; M53.3 Sacrococcygeal disorders, not elsewhere classified; M51.16 Intervertebral disc disorders with radiculopathy, lumbar region; M21.372 Foot drop, left foot
CPT/HCPCS: 72197; A9585

== ENCOUNTER → 2022-11-08 | Outpatient (CLI) | payer MEDICARE ==
[2022-11-08 09:57] LABS: African American GFR (CKD) >90 (>60 ml/min/1.73 sqM); Blood Urea Nitrogen 16 mg/dL (9-20); Non-African American GFR(CKD) 86 (>60 ml/min/1.73 sqM)
--- NOTE | 2022-11-10 19:00 | CT ---
EXAMINATION TYPE: CT ChestAbdPelvis w con DATE OF EXAM: 11/08/2022 INDICATION: Follow up for lung cancer. COMPARISON: 08/09/2022 CT DLP: 573.7 mGycm CONTRAST: Performed with Oral Contrast and with IV Contrast, patient injected with 100ml mL of Isovue 300. TECHNIQUE: Axial images at 5 mm thick sections. Reconstructed images in the coronal plane. Delayed images through the kidneys. FINDINGS: CT CHEST: Portion of the thyroid visualized is normal. There is a 0.3 cm nodule within the posterior medial right apex, present previously. There is a nodul ar density within the posterior pleural margin present previously. Larger measures 2.1 x 1.0 cm. Seri es 4 image 36. Smaller measures 1.3 x 0.7 cm. Series 4 image 29. There is a large consolidation in the periphery of the right upper lung field. This appears larger th an the comparison currently measuring 5.8 x 4.0 cm. Example image series 4 image 23. No enlarged mediastinal or hilar adenopathy is evident. The ascending aorta diameter at the level of the main pulmonary artery is 2.7 cm. The main pulmonary artery diameter at the bifurcation is 2.[address] ABDOMEN: Liver: Normal Spleen: Normal Pancreas: Normal Adrenal glands: The adrenal glands are normal. Gallbladder: Normal Kidneys: No masses are evident. No hydronephrosis is present. There is a 1.3 cm cyst on the superio r lateral left kidney. Delayed images were obtained through the kidneys, which remain unremarkable. The left proximal ureter becomes very prominent extending into the left hemipelvis within the left he mipelvis is becomes markedly dilated extending to the left ureterovesical junction. This has a diamet er of approximately 3.2 cm. Consider a potential obstruction at the ureteral vesicle junction. This w as present previously and Aorta: Normal Inferior vena cava: Normal. CT PELVIS: Loops of bowel within the abdomen and pelvis are normal. There are loops of bowel which are incom pletely distended or lack oral contrast limiting their evaluation. Appendix: Not identified. No dilated tubular structure or inflammatory changes are evident. Urinary bladder: Some mild wall thickening of the urinary bladder may be present. Genitourinary structures: Prostate is prominent Osseous structures: There is a large lytic area within the right sacrum measuring approximately 4.3 c m in diameter. Advanced degenerative changes at bilateral hips. Degenerative disc changes are present L5-S1 with endplate changes. IMPRESSIONS: 1. Enlarging mass or consolidation posterior lateral right upper lung field. 2. Pleural based nodules posterior right lung appears stable from comparison additional smaller nodul es present in the upper lung zavala were present previously and appear stable. 3. Left renal cyst. 4. Marked dilatation of the distal left ureter. 5. Increase in size of a lytic lesion within the right sacrum
== END | disposition home or self-care (01) ==
LOC: RADCTMAIN 09:25
PROVIDERS: ATTEND Internal Medicine Hematology & Oncology
DX: C34.90 Malignant neoplasm of unspecified part of unspecified bronchus or lung (principal); N28.1 Cyst of kidney, acquired; R91.8 Other nonspecific abnormal finding of lung field
CPT/HCPCS: 82565; 84520; 71260; 74177; 36415; Q9967

== ENCOUNTER → 2023-01-15 | Outpatient (CLI) | payer MEDICARE ==
[2023-01-15 13:59] LABS: African American GFR (CKD) 90 (>60 ml/min/1.73 sqM); Blood Urea Nitrogen 19 mg/dL (9-20); Non-African American GFR(CKD) 78 (>60 ml/min/1.73 sqM)
--- NOTE | 2023-01-15 15:33 | CT ---
EXAMINATION TYPE: CT ChestAbdPelvis w con CT DLP: 1030 mGycm, Automated exposure control for dose reduction was used. DATE OF EXAM: 01/15/2023 3:14 PM COMPARISON: Multiple CT chest abdomen pelvis with most recent 11/08/2022. CLINICAL INDICATION:Male, 67 years old with history of C34.90 lung ca; PHH, F/U LUNG CA. OBS FOR METS , Technique: Multiple axial images of the chest, abdomen, and pelvis were obtained following the intrav enous administration of 100 mL Isovue-300. Oral contrast was a ruffler. Two-dimensional coronal and sagittal reconstructions were obtained. Findings: CHEST: LUNGS/ PLEURA: Stable masslike consolidation within the periphery of the right upper lobe with air br onchograms measuring grossly 5.6 x 3.7 cm. No new or enlarging pulmonary nodules or masses. Nodular p leural thickening with calcifications in the right lower lobe is relatively stable from most recent e xam. AIRWAY: Patent and unremarkable.. HEART: Size within normal limits. No pericardial effusion. MEDIASTINUM: Stable prominent right hilar lymph node measuring 0.9 cm short axis. VASCULATURE: No aortic aneurysm. MUSCULOSKELETAL: No acute osseous abnormalities. SOFT TISSUES/LYMPH NODES: Unremarkable. LOWER NECK: No significant findings. ABDOMEN: ABDOMEN LIVER: Unremarkable GALLBLADDER AND BILE DUCTS: Unremarkable. PANCREAS: Unremarkable. SPLEEN: Unremarkable. ADRENAL GLANDS: Unremarkable. KIDNEYS AND URETERS: No evidence of hydronephrosis or renal calculus. The kidneys enhance symmetrical ly. Stable left renal cyst. PELVIS BLADDER: Unremarkable REPRODUCTIVE: Prostate is enlarged in size measuring 5.6 cm in transverse dimension. ABDOMEN & PELVIS STOMACH AND BOWEL: No focal bowel wall thickening or surrounding inflammatory changes. No evidence of bowel obstruction. PERITONEUM: No evidence of pneumoperitoneum or free fluid. VASCULATURE: No evidence of aortic aneurysm. MUSCULOSKELETAL: No acute osseous abnormalities. Multilevel disc degeneration changes throughout the spine and moderate multilevel neural foraminal stenosis secondary to facet joint arthropathy. There i s straightening of the visualized spine. End-stage osteoarthrosis changes to the hips with bone-on-ara ne articulation. Stable to marginally decreased in size of 4.5 x 4.1 cm predominantly right hemisacru m lytic lesion., Previously 4.7 x 4.3 cm. LYMPH NODES: No gross evidence for lymphadenopathy. SOFT TISSUE/ABDOMINAL WALL: Unremarkable IMPRESSION: 1. Stable right upper lobe masslike consolidation with air bronchograms which may represent residual tumor/metastasis and/or posttreatment change. Attention on follow-up exam. 2. Stable to marginally decreased size of lytic lesion in the predominant right hemisacrum. Again et iologies include metastatic disease versus other such as giant cell tumor or aneurysm bone cyst. 3. Stable pleural-based base calcified nodules within the right lower lobe.
== END | disposition home or self-care (01) ==
LOC: RADCTMAIN 13:21
PROVIDERS: ATTEND Internal Medicine Hematology & Oncology
DX: C34.91 Malignant neoplasm of unspecified part of right bronchus or lung (principal); I50.9 Heart failure, unspecified; I10 Essential (primary) hypertension; R91.8 Other nonspecific abnormal finding of lung field
CPT/HCPCS: 82565; 84520; 71260; 74177; 36415; Q9967

== ENCOUNTER → 2023-04-11 | Outpatient (CLI) | payer MEDICARE ==
[2023-04-11 14:26] LABS: African American GFR (CKD) 82 (>60 ml/min/1.73 sqM); Blood Urea Nitrogen 20 mg/dL (9-20); Non-African American GFR(CKD) 71 (>60 ml/min/1.73 sqM)
--- NOTE | 2023-04-11 15:20 | CT ---
EXAMINATION: CT CHEST, ABDOMEN AND PELVIS WITH IV CONTRAST DATE OF EXAMINATION: 04/11/2023. COMPARISON: 01/15/2023.. INDICATION: Follow-up for lung cancer. PROCEDURE: Axial CT of the chest, abdomen and pelvis was performed following the intravenous adminis tration of 100 ml Isovue 300. Coronal and sagittal reformats were performed. CT dose lowering techni ques were used, to include: automated exposure control, adjustment for patient size, and/or use of it erative reconstruction. FINDINGS: CHEST: Mediastinum and Raven: There is no axillary, mediastinal or hilar lymphadenopathy. Pleural and Pericardial spaces: There are no pleural or pericardial effusions. Cardiovascular: The thoracic aorta is normal in size without evidence of aneurysm or dissection. Pulmonary Artery: There are no central pulmonary arterial filling defects. Lung Parenchyma and Airways: Change masslike consolidative change within the right upper lobe posteri aislinn is potentially related to 2 prior treatment changes. Residual disease is difficult to exclude. A peter of pleural calcification posteriorly is unchanged. The lungs otherwise appear clear. ABDOMEN: Liver and Biliary system: Normal. Adrenal glands: Normal. Kidneys and ureters: Unchanged left renal cyst.. Spleen: Normal. Pancreas: Normal. Gallbladder: Normal. Lymph nodes, Peritoneum and mesentery: There is no mesenteric or retroperitoneal lymphadenopathy. Gastrointestinal tract: There are no dilated loops of bowel or free intraperitoneal air. . The appe ndix is normal. Aorta/IVC: Aorta normal. No aortic aneurysm or dissection. IVC normal. Abdominal wall: Normal. PELVIS: Fluid: There is no free fluid in the pelvis. Lymph Nodes: There is no pelvic or inguinal lymphadenopathy.. Urinary bladder: Normal. BONES: There is Lytic and sclerotic changes seen within the sacrum. The previously seen large central soft tissue den sity appears more sclerotic at this time and may relate to prior treatment changes.. ADDITIONAL SIGNIFICANT FINDINGS: None. IMPRESSION: 1. Unchanged appearance to the masslike consolidative change in the right upper lobe. This could rela te to posttreatment changes with residual disease not excluded. 2. Extensive sclerotic changes seen throughout the sacrum. The previously seen large or soft tissue a ppearance is now significantly sclerotic and may relate to posttreatment changes. Residual disease is also difficult to exclude in this location. 3. No new disease identified.
== END | disposition home or self-care (01) ==
LOC: RADCTMAIN 12:54
PROVIDERS: ATTEND Internal Medicine Hematology & Oncology
DX: C34.90 Malignant neoplasm of unspecified part of unspecified bronchus or lung (principal); I11.0 Hypertensive heart disease with heart failure; I50.9 Heart failure, unspecified; G95.89 Other specified diseases of spinal cord; R91.8 Other nonspecific abnormal finding of lung field
CPT/HCPCS: 82565; 84520; 71260; 74177; 36415; Q9967

== ENCOUNTER → 2023-07-11 | Outpatient (CLI) | payer MEDICARE ==
[2023-07-11 10:31] LABS: African American GFR (CKD) 88 (>60 ml/min/1.73 sqM); Blood Urea Nitrogen 23 mg/dL (9-20); Non-African American GFR(CKD) 76 (>60 ml/min/1.73 sqM)
--- NOTE | 2023-07-11 14:56 | CT ---
EXAMINATION TYPE: CT ChestAbdPelvis w con DATE OF EXAM: 07/11/2023 COMPARISON: 04/11/2023 and 01/15/2023 HISTORY: 67-year-old male C3 4.90, Hx lung ca, routine follow up TECHNIQUE: Contiguous axial scanning of the chest, abdomen, and pelvis performed with IV Contrast, pa tient injected with 100 mL of Isovue 300. Delayed images through the kidneys were obtained. Coronal/s agittal reconstructions performed. CT DLP: 98060 mGycm Automated exposure control for dose reduction was used. FINDINGS: Chest: The heart is normal size without pericardial effusion. Aorta normal caliber with bovine configuration to the aortic arch. 8 mm right hilar lymph node and 6 mm left hilar lymph node both remain unchanged. No thoracic lymphad enopathy by CT size criteria. Some chronic subpleural nodularity which is calcified along the posterior right mid to lower lung rem ains unchanged. Scarlike subpleural opacity at the posterolateral right mid lung is also unchanged me asuring up to 4.8 cm. Mild biapical pleural-parenchymal scarring. Some chronic pleural-parenchymal sc arring at the periphery of the right base is unchanged as well. No pleural effusion. ABDOMEN: No focal liver lesion. Stable mild prominence to the bile duct at 6 mm. Portal venous system is paten t. Gallbladder, adrenal glands, right kidney, spleen with hilar splenule, and pancreas within normal kim its. A benign 1.9 cm cortical cyst upper left kidney is unchanged. Diffusely dilated and patulous left ure ter is unchanged. No dilated small bowel, free fluid, or free air. No mesenteric or retroperitoneal lymphadenopathy. Moderate stool burden. No pericolonic inflammatory change. Mild circumferential rectal wall thickenin g is noted and may reflect adherent stool material. Pelvis: Mild circumferential bladder wall thickening likely chronic bilateral hypertrophy. Prostate gland is enlarged at 6.0 cm wide. Again, dilated left ureter noted in the pelvis as well measuring up to 3.1 c m in caliber versus 2.5 cm, previously. Otherwise, no abnormal fluid collection in the pelvis or pelv ic lymphadenopathy. Bones: Extensive heterogeneity and sclerosis throughout the S1-S2 vertebral bodies. There is some expansile change which may contribute to severe spinal canal stenosis. Overall appearance is unchanged compared to 07/10/2013. IMPRESSION: 1. POSTTREATMENT CHANGE RIGHT LUNG. NO NEW NODULARITY OR ENLARGING OPACITY TO SUGGEST DISEASE RECURRE NCE. 2. EXTENSIVE HETEROGENEITY AND SCLEROSIS AND SLIGHT EXPANSION OF THE UPPER SACRUM. THIS MAY CONTRIBUT E TO A SEVERE SPINAL CANAL STENOSIS AT THIS LEVEL. THE APPEARANCE IS UNCHANGED FROM 04/11/2023, POSSIB LE SITE OF TREATED DISEASE. CLINICALLY CORRELATE. 3. MILD CIRCUMFERENTIAL RECTAL WALL THICKENING MAY REFLECT ADHERENT STOOL MATERIAL OR A NONSPECIFIC M ILD COLITIS. 4. QUERY TREVOR LEFT URETER, UNCHANGED FROM PRIOR. PROSTATOMEGALY AT 6.0 CM WIDE.
== END | disposition home or self-care (01) ==
LOC: RADCTMAIN 09:37
PROVIDERS: ATTEND Internal Medicine Hematology & Oncology
DX: N40.0 Benign prostatic hyperplasia without lower urinary tract symptoms (principal); K62.89 Other specified diseases of anus and rectum; M89.8X8 Other specified disorders of bone, other site; C34.90 Malignant neoplasm of unspecified part of unspecified bronchus or lung; I11.0 Hypertensive heart disease with heart failure; I50.9 Heart failure, unspecified
CPT/HCPCS: 82565; 84520; 71260; 74177; 36415; Q9967

== ENCOUNTER → 2023-11-14 | Outpatient (CLI) | payer MEDICARE ==
[2023-11-14 10:23] LABS: African American GFR (CKD) 88 (>60 ml/min/1.73 sqM); Blood Urea Nitrogen 19 mg/dL (9-20); Non-African American GFR(CKD) 76 (>60 ml/min/1.73 sqM)
--- NOTE | 2023-11-15 16:02 | CT ---
EXAMINATION TYPE: CT ChestAbdPelvis w con CT DLP: 548 mGycm, Automated exposure control for dose reduction was used. DATE OF EXAM: 11/14/2023 12:02 PM COMPARISON: Multiple CTs dating back to 2014. PET/CT the back to 2014.. CLINICAL INDICATION:Male, 67 years old with history of C34.90 LUNG CA; PHH, h/o lung ca f/u Technique: CT ChestAbdPelvis w con; Multiple axial images were obtained. Two-dimensional coronal and sagittal reconstructions were obtained. Contrast used:100 mL of Isovue 300 with IV Contrast, Oral contrast used: with Oral Contrast Findings: CHEST: LUNGS/ PLEURA: Stable masslike consolidation within the periphery of the right upper lobe with air br onchograms measuring grossly cm approximately 3.5 x 4.0 cm. No new or enlarging pulmonary nodules or masses. Nodular pleural thickening with calcifications in the right lower lobe is stable, AIRWAY: Patent and unremarkable.. HEART: Size within normal limits. No pericardial effusion. MEDIASTINUM: Stable prominent right hilar lymph node measuring 0.9 cm short axis. VASCULATURE: No aortic aneurysm. MUSCULOSKELETAL: No acute osseous abnormalities. SOFT TISSUES/LYMPH NODES: Unremarkable. LOWER NECK: No significant findings. ABDOMEN: ABDOMEN LIVER: Unremarkable GALLBLADDER AND BILE DUCTS: Unremarkable. PANCREAS: Unremarkable. SPLEEN: Unremarkable. ADRENAL GLANDS: Unremarkable. KIDNEYS AND URETERS: No evidence of hydronephrosis or renal calculus. The kidneys enhance symmetrical ly. Stable left renal cyst. PELVIS BLADDER: Unremarkable REPRODUCTIVE: Prostate is enlarged in size measuring 5.3 cm in transverse dimension. ABDOMEN & PELVIS STOMACH AND BOWEL: No focal bowel wall thickening or surrounding inflammatory changes. No evidence of bowel obstruction. PERITONEUM: No evidence of pneumoperitoneum or free fluid. VASCULATURE: No evidence of aortic aneurysm. MUSCULOSKELETAL: New L5 vertebral body lucent area measuring up to 20 mm which is more pronounced and not well appreciated on priors. Additionally there is destructive changes to the sacrum which are sl owly increasing over time compared 2015. There is more lytic areas on today's exam in the sacrum when comparing to more distant prior's. LYMPH NODES: No gross evidence for lymphadenopathy. SOFT TISSUE/ABDOMINAL WALL: Unremarkable IMPRESSION: 1. Sacral bony deformity as well as a L5 vertebral body lucent lesion., The sacrum has slowly appear ed from 2015, there are no recent PET/CTs. Additionally there is a new area in the L5 vertebrae mary kate rning for neoplastic process. PET/CT recommended. 2. Stable right upper lobe masslike . No new or enlarging pulmonary nodules or lymphadenopathy. 3. Stable pleural-based base calcified nodules within the right lower lobe. .
== END | disposition home or self-care (01) ==
LOC: RADCTMAIN 09:42
PROVIDERS: ATTEND Internal Medicine Hematology & Oncology
DX: C34.90 Malignant neoplasm of unspecified part of unspecified bronchus or lung (principal); I50.9 Heart failure, unspecified; I10 Essential (primary) hypertension; M53.3 Sacrococcygeal disorders, not elsewhere classified; R91.8 Other nonspecific abnormal finding of lung field
CPT/HCPCS: 82565; 84520; 71260; 74177; Q9967

== ENCOUNTER → 2024-01-08 | Outpatient (CLI) | payer MEDICARE ==
--- NOTE | 2024-01-09 18:16 | PE ---
EXAMINATION TYPE: PET CT fusion skull to thigh DATE OF EXAM: 01/08/2024 CLINICAL INDICATION:Male, 68 years old with history of MALIGNANT NEOPLASM OF UPPER LOBE, RIGHT BRONCH US OR LUNG; TECHNIQUE: Following the intravenous administration of 12.32 mCi of F-18 FDG, whole body images are performed from the skull base to the midthigh. Images are reviewed on the computer in the coronal, axial, and sagittal planes. Reconstructed rotating images are created on independent workstation and reviewed on the computer. A non-contrast CT is performed in conjunction with the PET scan. Glucose level 83 mg/dL CT DLP: 200.04 mGycm, Automated exposure control for dose reduction was used. COMPARISON: CT 11/14/2023, 07/11/2023, 04/11/2023, 01/15/2023, 11/08/2022, PET/CT 08/13/2014, MRI: 09/19/2022, FINDINGS: Mediastinal SUV mean is 2.81. Hepatic parenchyma SUV mean is 3.46. SKULL BASE AND NECK: No suspicious radiotracer activity. CHEST, MEDIASTINUM, AND HILAR REGION: Stable masslike consolidation within the periphery of the right upper lobe with air bronchograms. Fanny sures grossly 3.8 x 3.0 cm. Demonstrates a maximum SUV of 5.93 primarily in the periphery. Nodular pleural thickening with calcifications in the right lower lobe redemonstrated. This demonstra amrit a maximum SUV of 19.1. Right hilar lymph nodes demonstrated with a maximum SUV of 11.83. Left hilar lymph nodes with a maximum SUV of 7.1. Right pericarinal SUV of 5.24. ABDOMEN AND PELVIS: No suspicious radiotracer activity. MUSCULOSKELETAL STRUCTURES: L5 vertebral body lucent lesion with a maximum SUV of 10.77. New from prior PET/CT. Heterogenous sclerotic/ lucent appearance of the sacrum with a maximum SUV of 17.76. New from prior P ET/CT. Mixed sclerotic/lucent lesion involving the left iliac bone (series 3, image 199). Demonstrates a max imum SUV of 6.97. New from prior PET/CT. OTHER CT: Stable left renal cyst. Prostatomegaly. Stable left distal megaureter. Bilateral hip osteoa rthritic change. IMPRESSION: Recurrent/metastatic disease identified with increased pathologic radiotracer uptake identified withi n a peripheral right upper lobe masslike consolidation, right pleural-based nodular regions, and medi astinal/hilar lymph nodes. Additional new left iliac bone/sacrum/L5 vertebral body osseous lesions wi th abnormal pathologic radiotracer uptake most consistent with new metastasis.
== END | disposition home or self-care (01) ==
LOC: RADPETMAIN 11:42
PROVIDERS: ATTEND Radiology Radiation Oncology
DX: M53.3 Sacrococcygeal disorders, not elsewhere classified (principal); C79.51 Secondary malignant neoplasm of bone; Z79.899 Other long term (current) drug therapy; Z85.118 Personal history of other malignant neoplasm of bronchus and lung; Z92.3 Personal history of irradiation; Z92.21 Personal history of antineoplastic chemotherapy; C34.11 Malignant neoplasm of upper lobe, right bronchus or lung
CPT/HCPCS: 78815; A9552

== ENCOUNTER → 2024-04-22 | Outpatient (CLI) | payer MEDICARE ==
[2024-04-22 10:32] LABS: African American GFR (CKD) >90 (>60 ml/min/1.73 sqM); Blood Urea Nitrogen 23 mg/dL (9-20); Non-African American GFR(CKD) 82 (>60 ml/min/1.73 sqM)
--- NOTE | 2024-04-22 12:49 | CT ---
EXAMINATION TYPE: CT ChestAbdPelvis w con DATE OF EXAM: 04/22/2024 COMPARISON: 11/14/2023 HISTORY: Lung cancer CT DLP: mGycm Automated exposure control for dose reduction was used. Multiple axial images are obtained through the chest, abdomen and pelvis findings nonionic IV contras t. FINDINGS: CT chest: There is a 5 to 6 cm ill-defined area of consolidation with spiculated margins in the right lower lob e in the subpleural parenchymal lung. There are multiple stable pleural-based nodules in the right lo wer lobe posteriorly. No new or suspicious lung nodules are seen. There is no pneumothorax or pleural effusion. The great vessels the chest are normal and there is no mediastinal, hilar or axillary adenopathy. No focal osseous lesions are seen. CT abdomen and pelvis: Gallbladder is normal without distention, pericholecystic fluid, wall thickening or gallstone. There is no biliary ductal dilatation. There is no focal mass or organomegaly involving the liver, pancreas, spleen or adrenal glands.. There is no solid renal mass or hydronephrosis. There is no retroperitoneal adenopathy or hemorrhage in the caliber of the abdominal aorta is normal. The bowel loops are normal in caliber and there is no dilatation or obstruction. No inflammatory benavidez ges identified in the bowel wall and mesentery. There is no free intracranial air or fluid. There is a 6.1 x 3.2 cm well-circumscribed fluid density mass in the left pelvis which appears to rep resent a large left sided urinary bladder diverticulum. It was seen previously and is stable. There i s marked prostatic hypertrophy. There is no pelvic adenopathy.. There is a large stable lucency involving the involving the L5 vertebral segment. There is stable mar ked remodeling with sclerosis and lucency involving the sacrum. IMPRESSION: 1. Stable large right lower lobe consolidation/mass. 2. Stable multiple right lower lobe pleural-based nodules. 3. Stable lesions involving L5 and the sacrum as described above. 4. Stable 6.1 cm fluid filled mass in the left pelvis likely a large left bladder diverticulum. 5. Marked prostate enlargement [facility], , 04/22/2024 12:47 PM
== END | disposition home or self-care (01) ==
LOC: RADCTMAIN 09:42
PROVIDERS: ATTEND Internal Medicine Hematology & Oncology
DX: C34.90 Malignant neoplasm of unspecified part of unspecified bronchus or lung (principal); I50.9 Heart failure, unspecified; I10 Essential (primary) hypertension; M53.3 Sacrococcygeal disorders, not elsewhere classified; N40.0 Benign prostatic hyperplasia without lower urinary tract symptoms
CPT/HCPCS: 82565; 84520; 71260; 74177; 36415; Q9967

== ENCOUNTER → 2024-07-29 | Outpatient (CLI) | payer MEDICARE ==
[2024-07-29 12:31] LABS: African American GFR (CKD) 84 (>60 ml/min/1.73 sqM); Blood Urea Nitrogen 21 mg/dL (9-20); Non-African American GFR(CKD) 73 (>60 ml/min/1.73 sqM)
--- NOTE | 2024-07-29 14:07 | CT ---
EXAMINATION TYPE: CT ChestAbdPelvis w con CT DLP: 590.20 mGycm, Automated exposure control for dose reduction was used. DATE OF EXAM: 07/29/2024 1:50 PM COMPARISON: Multiple CT Chest Abdomen Pelvis With most recent 04/22/2024, PET CT 01/08/2024 CLINICAL INDICATION:Male, 68 years old with history of C34.90 LUNG CANCER; PHH, LUNG CA F/U PRIOR ON PACS. Technique: Multiple axial images of the chest, abdomen, and pelvis were obtained following the intrav enous administration of 100 mL Isovue-300. Oral contrast was administered. Two-dimensional coronal an d sagittal reconstructions were obtained. Findings: CHEST: LUNGS/ PLEURA: Unchanged ill-defined area of consolidation with irregular margin within the right pos terior upper lung in the subpleural parenchymal. Multiple stable hyperdense pleural-based nodules in the right lower lobe posteriorly. No new or enlarging pulmonary nodules. AIRWAY: Patent and unremarkable.. HEART: Size within normal limits.No pericardial effusion. No significant coronary artery calcificatio ns. MEDIASTINUM: No enlarged lymph nodes greater than 1 cm short axis. VASCULATURE: No aortic aneurysm. MUSCULOSKELETAL: No acute osseous abnormalities. SOFT TISSUES/LYMPH NODES: Unremarkable. LOWER NECK: No significant findings. ABDOMEN: ABDOMEN LIVER: Unremarkable GALLBLADDER AND BILE DUCTS: Unremarkable. PANCREAS: Unremarkable. SPLEEN: Unremarkable. ADRENAL GLANDS: Unremarkable. KIDNEYS AND URETERS: No evidence of hydronephrosis or renal calculus. The kidneys enhance symmetrical ly. Left renal upper pole 1.4 cm cyst redemonstrated. Contrast is demonstrated within both collecting systems on the delayed phase. Stable distal left megaureter measuring 6.9 x 3.2 cm. PELVIS BLADDER: Unremarkable. REPRODUCTIVE: Prominent prostate gland. ABDOMEN & PELVIS STOMACH AND BOWEL: Stomach and duodenum are unremarkable. Enteric contrast reaches the mid to distal small bowel. No focal bowel wall thickening or surrounding inflammatory changes. Mild amount of stool is present throughout the colon. No evidence of bowel obstruction. PERITONEUM: No evidence of pneumoperitoneum or free fluid. VASCULATURE: No evidence of aortic aneurysm. MUSCULOSKELETAL: No acute osseous abnormalities. Advanced bilateral hip osteoarthritic changes. Stabl e heterogenous sclerotic and lytic appearance of the sacrum which demonstrated regions of FDG activit y on prior PET CT additional lytic lesion with peripheral sclerosis involving the L5 vertebral body w hich demonstrated FDG activity in prior PET/CT. Additional stable lytic lesion involving the left jone ac bone which demonstrated FDG activity on prior PET/CT. LYMPH NODES: No evidence for lymphadenopathy. SOFT TISSUE/ABDOMINAL WALL: Unremarkable IMPRESSION: 1. Stable right upper lung consolidation/mass which demonstrated some mild FDG activity on prior PET CT. Concern for recurrence/metastasis. 2. Stable right posterior lung nodular opacities which demonstrated FDG activity on prior PET/CT. Mos t consistent with metastasis. 3. Stable lesions involving the left iliac bone, sacrum, and L5 vertebral bodies and demonstrated FDG activity on prior PET/CT. Most consistent with metastasis. [facility], , 07/29/2024 2:05 PM
== END | disposition home or self-care (01) ==
LOC: RADCTMAIN 11:50
PROVIDERS: ATTEND Internal Medicine Hematology & Oncology
DX: C34.91 Malignant neoplasm of unspecified part of right bronchus or lung (principal); M53.3 Sacrococcygeal disorders, not elsewhere classified; R91.8 Other nonspecific abnormal finding of lung field
CPT/HCPCS: 82565; 84520; 71260; 74177; 36415; Q9967

== ENCOUNTER → 2024-10-20 | Outpatient (CLI) | payer MEDICARE ==
[2024-10-20 09:43] LABS: African American GFR (CKD) >90 (>60 ml/min/1.73 sqM); Blood Urea Nitrogen 16 mg/dL (9-20); Non-African American GFR(CKD) 78 (>60 ml/min/1.73 sqM)
--- NOTE | 2024-10-20 12:06 | CT ---
EXAMINATION TYPE: CT ChestAbdPelvis w con DATE OF EXAM: 10/20/2024 11:19 AM COMPARISON: 07/29/2024. CLINICAL INDICATION: Male, 68 years old with history of C34.90 LUNG CA; PHH, lung ca Technique: CT ChestAbdPelvis w con; Multiple axial images were obtained. Two-dimensional coronal and sagittal reconstructions were obtained. Contrast used:100 mL of Isovue 300 with IV Contrast, (None if empty) Oral contrast used: with Oral Contrast CT DLP: 1037 mGycm, Automated exposure control for dose reduction was used. Findings: CHEST: LUNGS/ PLEURA: * Flat like ill-defined area of consolidation with irregular margin within the right posterior upper lung in the subpleural parenchymal. * Stable multiple hyperdense pleural-based nodules in the right lower lobe posteriorly. No new or en larging pulmonary nodules. AIRWAY: Patent and unremarkable.. HEART: Size within normal limits.No pericardial effusion. No significant coronary artery calcificatio ns. MEDIASTINUM: No enlarged lymph nodes greater than 1 cm short axis. VASCULATURE: No aortic aneurysm. MUSCULOSKELETAL: No acute osseous abnormalities. SOFT TISSUES/LYMPH NODES: Unremarkable. LOWER NECK: No significant findings. ABDOMEN: ABDOMEN LIVER: Unremarkable GALLBLADDER AND BILE DUCTS: Unremarkable. PANCREAS: Unremarkable. SPLEEN: Unremarkable. ADRENAL GLANDS: Unremarkable. KIDNEYS AND URETERS: No evidence of hydronephrosis or renal calculus. The kidneys enhance symmetrical ly. Left renal upper pole 1.4 cm cyst redemonstrated. Contrast is demonstrated within both collecting systems on the delayed phase. Stable distal left megaureter. PELVIS BLADDER: Unremarkable. REPRODUCTIVE: Prominent prostate gland. ABDOMEN & PELVIS STOMACH AND BOWEL: Stomach and duodenum are unremarkable. Enteric contrast reaches the mid to distal small bowel. No focal bowel wall thickening or surrounding inflammatory changes. Mild amount of stool is present throughout the colon. No evidence of bowel obstruction. PERITONEUM: No evidence of pneumoperitoneum or free fluid. VASCULATURE: No evidence of aortic aneurysm. MUSCULOSKELETAL: No acute osseous abnormalities. Bilateral * Severe hip osteoarthritic changes. * Stable heterogenous sclerotic and lytic appearance of the sacrum which demonstrated regions of FDG activity on prior PET CT . * Stable lytic lesion with peripheral sclerosis involving the L5 vertebral body which demonstrated F DG activity in prior PET/CT. * Stable lytic lesion involving the left iliac bone which demonstrated FDG activity on prior PET/CT. LYMPH NODES: No evidence for lymphadenopathy. SOFT TISSUE/ABDOMINAL WALL: Unremarkable IMPRESSION: Overall stable exam, No evidence for progression of disease at this time. 1. Stable morphology to the right upper lung consolidation/mass . Findings favor posttreatment change given stability. Continued surveillance recommended. 2. Stable right posterior lung nodular opacities which demonstrated FDG activity on prior PET/CT. Mos t consistent with malignancy until proven otherwise. 3. Stable lesions involving the left iliac bone, sacrum, and L5 vertebral bodies and demonstrated FDG activity on prior PET/CT. Most consistent with metastasis. [facility], , 10/20/2024 12:04 PM
== END | disposition home or self-care (01) ==
LOC: RADCTMAIN 08:53
PROVIDERS: ATTEND Internal Medicine Hematology & Oncology
DX: C34.90 Malignant neoplasm of unspecified part of unspecified bronchus or lung (principal); I11.0 Hypertensive heart disease with heart failure; I50.9 Heart failure, unspecified; D70.2 Other drug-induced agranulocytosis; R91.8 Other nonspecific abnormal finding of lung field; M53.3 Sacrococcygeal disorders, not elsewhere classified
CPT/HCPCS: 82565; 84520; 71260; 74177; 36415; Q9967